=== PATIENT | female | born 1960 | race Caucasian/White ===

== ENCOUNTER 2018-05-05 13:00 | Outpatient (RCR) | payer MEDICARE, BC, MEDICAID, SELFPAY ==
--- NOTE | 2018-01-19 07:37 | PT.OIE ---
Current Diagnoses Bilateral primary osteoarthritis of knee (01/18/18) Patellofemoral disorders, right knee (01/18/18) Provider Visit Care Team Role Provider Type Hadley Stinson DO Family Provider Physician Primary Care Provider Specialty: Physiatry Pain Management Address: [address] [place] [address], [id number] Email: Jose A Vega MD Attending Provider Physician Specialty: Orthopedics Address: [address] [place] [address], [id number] Email: [email or web address] Initial Evaluation PT-OP-A Visit Information Start: 01/18/18 16:25 Freq: Status: Active Protocol: Document 01/18/18 16:26 EA (Rec: 01/18/18 16:54 EA [id number]) Out-Patient Physical Therapy Visit Information Visit Information Visit Type Initial Evaluation Visit Start Time 14:30 Visit Stop Time 15:05 Total Visit Minutes 35 Visit Number 1 PT-OP-B Current Condition Start: 01/18/18 16:25 Freq: Status: Active Protocol: Document 01/18/18 16:26 EA (Rec: 01/18/18 16:54 EA [id number]) Current Condition History of Current Condition Onset Date year ago Current Complaints Bilateral knee pain Left > Right History of Current Condition Patient was under skilled PT last 2016 and was discharged to [facility] on September 2017. Patient returned today after three weeks x 3 session of cortisone shots. Patient referred by her primary care to improve knee dysfunction. 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 Knee injury almost two years ago intensified the condition. X-rays reveals consistent with the diagnosis. Current active Diagnosis: Chronic back pain, Depression, ADD, Vision. Prior Treatments and Tests Skilled PT (06/2017-09/2017), x 3 cortisone shots in the last three weeks Developmental History Developmental History ADD Treatment Goals Patient/Caregiver Goals Patient want to eliminate pain and so she could perform walking and stari climbing without difficulty. Prior Functional Status Baseline Function- ADL's Independent Baseline Function- Mobility Independent Current Functional Impairments (Reported) Functional Limitations- ADL's Slight difficulty in ADL with weight bearing activities. Personal Factors Other Personal Factors That May Effect Chronicity of the condition. Therapy/Recovery depression. PT-OP-C Subjective Start: 01/18/18 16:25 Freq: Status: Active Protocol: Document 01/18/18 16:26 EA (Rec: 01/18/18 16:54 EA [id number]) OP-PT Subjective Patient Comments Patient Comments Patient reports underwent three cortisone shots and had improved a bit; states still following HEP that was recommended by PT. Pt reports referred to PT for further knee improvement. Patient Reported Progress Improving Patient Questionnaires Lower Extremity Functional Scale LEFS Impairment 20 to 39% Impaired (Score 48- 62) PT-OP-G Mobility & Gait Start: 01/18/18 16:25 Freq: Status: Active Protocol: Document 01/18/18 16:22 EA (Rec: 01/18/18 17:35 EA [id number]) OP Mobility Evaluation Functional Movements Squats Single leg squat: Unable to to both leg due to pain Stair Climbing Evaluation Evaluation Level of Assist On Stairs Independent Devices Stair Climbing Assistive Devices None Technique/Endurance Stair Climbing Technique Step to Step Number of Steps Climbed 15 Query Text: Comments Stair Climbing Comments Slight deviation/hand support during descent PT-OP-J Posture/Palpation/Skin Start: 01/18/18 16:25 Freq: Status: Active Protocol: Document 01/18/18 16:22 EA (Rec: 01/18/18 17:35 EA [id number]) Posture Evaluation Position Standing Evaluation View Anterior Knee Posture (L) Neutral (R) Neutral Palpation Assessment Location Two Palpation Location Patella, bilateral Palpation Details Grinding with pain during patellar compression One Palpation Location Medial superior pole and medial pole of bilateral patella Palpation Findings Tenderness Skin Assessment Circumference Measurement 1 Location Joint line: R 15 - Left 16.5 PT-OP-K Range of Motion Start: 01/18/18 16:25 Freq: Status: Active Protocol: Document 01/18/18 16:22 EA (Rec: 01/18/18 17:35 EA [id number]) Knee Goniometric Range of Motion Knee Measured in Degrees Right Knee ROM WFL Yes Left Knee ROM WFL Yes PT-OP-L Special Tests Start: 01/18/18 16:25 Freq: Status: Active Protocol: Document 01/18/18 16:22 EA (Rec: 01/18/18 17:35 EA [id number]) Special Tests Hip Special Tests Charlie Test Results slight positive Knee Special Tests Patellar Grind Test Test Results positive Hughston Pica Test Test Results negative Kenna Test Test Results negative Moisés's Sign Test Results bilateral positive PT-OP-M Strength Start: 01/18/18 16:25 Freq: Status: Active Protocol: Document 01/18/18 16:22 EA (Rec: 01/18/18 17:35 EA [id number]) Knee Strength Knee Manual Muscle Testing Right Flexion (S2) 5 Normal Extension (L3) 5 Normal Left Flexion (S2) 5 Normal Extension (L3) 5 Normal PT-OP-Q Treatments Start: 01/18/18 16:25 Freq: Status: Active Protocol: Document 01/18/18 16:22 EA (Rec: 01/18/18 17:35 EA [id number]) Self-Care/Home Management Treatment Education Patient Education Home Exercise Program Joint Protection Pain Management Safety PT-OP-T Assessment and Plan Start: 01/18/18 16:25 Freq: Status: Active Protocol: Document 01/18/18 16:22 EA (Rec: 01/18/18 17:35 EA [id number]) Physical Therapy Assessment Rehab Potential Rehabilitation Potential Good Impairments Impairments Activity Tolerance Edema Pain Soft Tissue Mobility Goals Four Impairment LEFS score of 62 Group Home Goal (LTG) Patient will have LEFS score of 68 LTG Duration 4 wks Three Impairment Inability to perform 1/4 single leg squat Group Home Goal (LTG) Patient will perform single leg squat range 1/4 without discomfort to use for functional stairs LTG Duration 4 wks Two Impairment Left knee Swelling Group Home Goal (LTG) Patient will exhibit decrease swelling on left knee by 4 cm LTG Duration 4 wks One Impairment PS of 5/10 with weight bearing activities. Group Home Goal (LTG) Patient will report 2/10 PS in all weight bearing activities LTG Duration 4 Assessment Summary Assessment Patient exhibited signs and symptoms consistent with PFPS with positive to special tests x 2. Patient demonstrates mild limitation to most weight bearing activities but it has been improving since the last PT visit three months ago. Patient also underwent three session of cortisone shots which helps her symptoms to decrease more. In my professional opinion, patient will benefit with skilled PT to address the remaining deficits such as swelling, tightness and prevention of symptoms recurrence through advance quads strengthening exercises. Physical Therapy Plan Frequency and Duration Frequency of Treatment 1x/Week Plan of Care Start Date 01/18/18 Plan of Care End Date 03/01/18 Therapeutic Interventions Therapeutic Interventions Home Exercise Program Joint Mobilizations Manual Therapy Patient/Caregiver Education Self-Care/Home Management Soft Tissue Mobilization Taping Therapeutic Exercises Modalities Cold Pack/Ice Massage Electric Stimulation Hot Packs Iontophoresis Ultrasound Next Visit Focus/Plan Next Note Type Treatment Note Next Visit Plan HEP. VMO exercises, IB band, hamtrings, quads flexibility Please Sign and Return: I have reviewed this Plan of Care and certify that the skilled therapy services above are required to meet the patient?s needs. Physician Signature Date Printed Name and Credentials Clinical Instructor Signature Printed Name and Credentials
--- NOTE | 2018-01-20 15:13 | PT.OTN ---
Current Diagnoses Bilateral primary osteoarthritis of knee (01/20/18) Patellofemoral disorders, right knee (01/20/18) Physical Therapy Treatment Note PT-OP-A Visit Information Start: 01/18/18 16:25 Freq: Status: Active Protocol: Document 01/20/18 15:04 EA (Rec: 01/20/18 15:13 EA [id number]) Out-Patient Physical Therapy Visit Information Visit Information Visit Type Treatment Note Visit Start Time 14:30 Visit Stop Time 15:15 Total Visit Minutes 45 Visit Number 2 PT-OP-B Current Condition Start: 01/18/18 16:25 Freq: Status: Active Protocol: Document 01/18/18 16:26 EA (Rec: 01/18/18 16:54 EA [id number]) Current Condition History of Current Condition Onset Date year ago Current Complaints Bilateral knee pain Left > Right History of Current Condition Patient was under skilled PT last 2016 and was discharged to [facility] on September 2017. Patient returned today after three weeks x 3 session of cortisone shots. Patient referred by her primary care to improve knee dysfunction. 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 Knee injury almost two years ago intensified the condtion. X-rays reveals consistent with the diagnosis. Current active Diagnosis: Chronic back pain, Depression, ADD, Vision. Prior Treatments and Tests Skilled PT (06/2017-09/2017), x 3 cortisone shots in the last three weeks Developmental History Developmental History ADD Treatment Goals Patient/Caregiver Goals Patient want to eliminate pain and so she could perform walking and stari climbing without difficulty. Prior Functional Status Baseline Function- ADL's Independent Baseline Function- Mobility Independent Current Functional Impairments (Reported) Functional Limitations- ADL's Slight difficulty in ADL with weight bearing activities. Personal Factors Other Personal Factors That May Effect Chronicity of the condition. Therapy/Recovery depression. PT-OP-C Subjective Start: 01/18/18 16:25 Freq: Status: Active Protocol: Document 01/20/18 15:04 EA (Rec: 01/20/18 15:13 EA [id number]) OP-PT Subjective Patient Comments Patient Comments No new complaint at this time Patient Reported Progress Same PT-OP-G Mobility & Gait Start: 01/18/18 16:25 Freq: Status: Active Protocol: Document 01/18/18 16:22 EA (Rec: 01/18/18 17:35 EA [id number]) OP Mobility Evaluation Functional Movements Squats Single leg squat: Unable to to both leg due to pain Stair Climbing Evaluation Evaluation Level of Assist On Stairs Independent Devices Stair Climbing Assistive Devices None Technique/Endurance Stair Climbing Technique Step to Step Number of Steps Climbed 15 Query Text: Comments Stair Climbing Comments Slight deviation/hand support during descent PT-OP-J Posture/Palpation/Skin Start: 01/18/18 16:25 Freq: Status: Active Protocol: Document 01/18/18 16:22 EA (Rec: 01/18/18 17:35 EA [id number]) Posture Evaluation Position Standing Evaluation View Anterior Knee Posture (L) Neutral (R) Neutral Palpation Assessment Location Two Palpation Location Patella, bilateral Palpation Details Grinding with pain during patellar compression One Palpation Location Medial superior pole and medial pole of bilateral patella Palpation Findings Tenderness Skin Assessment Circumference Measurement 1 Location Joint line: R 15 - Left 16.5 PT-OP-K Range of Motion Start: 01/18/18 16:25 Freq: Status: Active Protocol: Document 01/18/18 16:22 EA (Rec: 01/18/18 17:35 EA [id number]) Knee Goniometric Range of Motion Knee Measured in Degrees Right Knee ROM WFL Yes Left Knee ROM WFL Yes PT-OP-L Special Tests Start: 01/18/18 16:25 Freq: Status: Active Protocol: Document 01/18/18 16:22 EA (Rec: 01/18/18 17:35 EA [id number]) Special Tests Hip Special Tests Charlie Test Results slight positive Knee Special Tests Patellar Grind Test Test Results positive Hughston Pica Test Test Results neagtive Kenna Test Test Results negative Moisés's Sign Test Results bilateral positive PT-OP-M Strength Start: 01/18/18 16:25 Freq: Status: Active Protocol: Document 01/18/18 16:22 EA (Rec: 01/18/18 17:35 EA [id number]) Knee Strength Knee Manual Muscle Testing Right Flexion (S2) 5 Normal Extension (L3) 5 Normal Left Flexion (S2) 5 Normal Extension (L3) 5 Normal PT-OP-Q Treatments Start: 01/18/18 16:25 Freq: Status: Active Protocol: Document 01/20/18 15:04 EA (Rec: 01/20/18 15:13 EA [id number]) Cardio Equipment Recumbent Stepper (Sci-Fit) Duration (Minutes) 7 Resistance 2 Gym Equipment Cable Column (Body Solid) Leg Extension Details VMO focus Reps/Time x 5SH x 5 reps x 2 sets Shuttle Recovery Unilateral Squats Details 1/2 range Resistance 35-50# Shuttle Recovery Platform Stable Reps/Time x 12 reps x 2 Therapeutic Exercises Prone Exercises 1 Prone Exercise Name Quads stretch Side bilateral Reps/Minutes x 15 SH x 2 sets Sidelying Exercises 1 Sidelying Exercise Name IT band and hip ABD stretch Side left Reps/Minutes x15SH x 2 reps Standing Exercises 1 Standing Exercise Name Wall T-ball squat Side bilateral Reps/Minutes 10 reps x 5 SH x 2 sets Comments 1/2 range PT-OP-R Modalities Start: 01/18/18 16:25 Freq: Status: Active Protocol: Document 01/20/18 15:04 EA (Rec: 01/20/18 15:13 EA [id number]) Electric Stimulation Electric Stimulation Interferential Current (IFC) Body Location Left distal quads Duration (Minutes) 15 Combined With Heat/Cold Cold Pack Comments Both knee Ice pack PT-OP-T Assessment and Plan Start: 01/18/18 16:25 Freq: Status: Active Protocol: Document 01/20/18 15:04 EA (Rec: 01/20/18 15:13 EA [id number]) Physical Therapy Assessment Assessment Summary Assessment Tolerated treatment well. Recommended HEP that was given last September 2017. Physical Therapy Plan Next Visit Focus/Plan Next Note Type Treatment Note Next Visit Plan Partial lunges/ left patellar mobilization toward medial side. Please Sign and Return: I have reviewed this Plan of Care and certify that the skilled therapy services above are required to meet the patient?s needs. Physician Signature Date Printed Name and Credentials Clinical Instructor Signature Printed Name and Credentials
--- NOTE | 2018-01-25 15:09 | PT.OTN ---
Current Diagnoses Bilateral primary osteoarthritis of knee (01/25/18) Patellofemoral disorders, right knee (01/25/18) Physical Therapy Treatment Note PT-OP-A Visit Information Start: 01/18/18 16:25 Freq: Status: Active Protocol: Document 01/25/18 15:03 EA (Rec: 01/25/18 15:04 EA [id number]) Out-Patient Physical Therapy Visit Information Visit Information Visit Type Treatment Note Visit Start Time 14:30 Visit Stop Time 15:15 Total Visit Minutes 45 Visit Number 3 PT-OP-B Current Condition Start: 01/18/18 16:25 Freq: Status: Active Protocol: Document 01/18/18 16:26 EA (Rec: 01/18/18 16:54 EA [id number]) Current Condition History of Current Condition Onset Date year ago Current Complaints Bilateral knee pain Left > Right History of Current Condition Patient was under skilled PT last 2016 and was discharged to [facility] on September 2017. Patient returned today after three weeks x 3 session of cortisone shots. Patient referred by her primary care to improve knee dysfunction. 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 Knee injury almost two years ago intensified the condtion. X-rays reveals consistent with the diagnosis. Current active Diagnosis: Chronic back pain, Depression, ADD, Vision. Prior Treatments and Tests Skilled PT (06/2017-09/2017), x 3 cortisone shots in the last three weeks Developmental History Developmental History ADD Treatment Goals Patient/Caregiver Goals Patient want to eliminate pain and so she could perform walking and stari climbing without difficulty. Prior Functional Status Baseline Function- ADL's Independent Baseline Function- Mobility Independent Current Functional Impairments (Reported) Functional Limitations- ADL's Slight difficulty in ADL with weight bearing activities. Personal Factors Other Personal Factors That May Effect Chronicity of the condition. Therapy/Recovery depression. PT-OP-C Subjective Start: 01/18/18 16:25 Freq: Status: Active Protocol: Document 01/25/18 15:03 EA (Rec: 01/25/18 15:04 EA [id number]) OP-PT Subjective Patient Comments Patient Comments Patient reports knee is much feeling better. PT-OP-G Mobility & Gait Start: 01/18/18 16:25 Freq: Status: Active Protocol: Document 01/18/18 16:22 EA (Rec: 01/18/18 17:35 EA [id number]) OP Mobility Evaluation Functional Movements Squats Single leg squat: Unable to to both leg due to pain Stair Climbing Evaluation Evaluation Level of Assist On Stairs Independent Devices Stair Climbing Assistive Devices None Technique/Endurance Stair Climbing Technique Step to Step Number of Steps Climbed 15 Comments Stair Climbing Comments Slight deviation/hand support during descent PT-OP-J Posture/Palpation/Skin Start: 01/18/18 16:25 Freq: Status: Active Protocol: Document 01/18/18 16:22 EA (Rec: 01/18/18 17:35 EA [id number]) Posture Evaluation Position Standing Evaluation View Anterior Knee Posture (L) Neutral (R) Neutral Palpation Assessment Location Two Palpation Location Patella, bilateral Palpation Details Grinding with pain during patellar compression One Palpation Location Medial superior pole and medial pole of bilateral patella Palpation Findings Tenderness Skin Assessment Circumference Measurement 1 Location Joint line: R 15 - Left 16.5 PT-OP-K Range of Motion Start: 01/18/18 16:25 Freq: Status: Active Protocol: Document 01/18/18 16:22 EA (Rec: 01/18/18 17:35 EA [id number]) Knee Goniometric Range of Motion Knee Measured in Degrees Right Knee ROM WFL Yes Left Knee ROM WFL Yes PT-OP-L Special Tests Start: 01/18/18 16:25 Freq: Status: Active Protocol: Document 01/18/18 16:22 EA (Rec: 01/18/18 17:35 EA [id number]) Special Tests Hip Special Tests Charlie Test Results slight positive Knee Special Tests Patellar Grind Test Test Results positive Hughston Pica Test Test Results neagtive Kenna Test Test Results negative Moisés's Sign Test Results bilateral positive PT-OP-M Strength Start: 01/18/18 16:25 Freq: Status: Active Protocol: Document 01/18/18 16:22 EA (Rec: 01/18/18 17:35 EA [id number]) Knee Strength Knee Manual Muscle Testing Right Flexion (S2) 5 Normal Extension (L3) 5 Normal Left Flexion (S2) 5 Normal Extension (L3) 5 Normal PT-OP-Q Treatments Start: 01/18/18 16:25 Freq: Status: Active Protocol: Document 01/25/18 15:05 EA (Rec: 01/25/18 15:08 EA [id number]) Cardio Equipment Recumbent Bicycle Duration (Minutes) 5 Resistance 4 Gym Equipment Cable Column (Body Solid) Leg Extension Details VMO focus Resistance 2-4 plates Reps/Time x 5SH x 5 reps x 3 sets Shuttle Recovery Bilateral Squats Details VMO Resistance 100-125 lbs Reps/Time x 15 reps x 3 Unilateral Squats Details 1/2 range Resistance 35-50# Shuttle Recovery Platform Stable Reps/Time x 12 reps x 2 Therapeutic Exercises Prone Exercises 1 Prone Exercise Name Quads stretch Side bilateral Reps/Minutes x 15 SH x 2 sets Sidelying Exercises 1 Sidelying Exercise Name IT band and hip ABD stretch Side left Reps/Minutes x15SH x 2 reps Standing Exercises 2 Standing Exercise Name Partial lunges with hand support Reps/Minutes x 8 reps x 2 sets 1 Standing Exercise Name Wall T-ball squat Side bilateral Reps/Minutes 10 reps x 5 SH x 2 sets Comments 1/2 range PT-OP-R Modalities Start: 01/18/18 16:25 Freq: Status: Active Protocol: Document 01/25/18 15:05 EA (Rec: 01/25/18 15:08 EA [id number]) Electric Stimulation Electric Stimulation Interferential Current (IFC) Body Location Left distal quads Duration (Minutes) 15 Combined With Heat/Cold Cold Pack Comments Both knee Ice pack PT-OP-T Assessment and Plan Start: 01/18/18 16:25 Freq: Status: Active Protocol: Document 01/25/18 15:05 EA (Rec: 01/25/18 15:08 EA [id number]) Physical Therapy Assessment Assessment Summary Assessment No discomfort noted during therapeutic exercises. Patient is progressing well. Physical Therapy Plan Next Visit Focus/Plan Next Note Type Treatment Note Next Visit Plan left patellar mobilization toward medial side. Please Sign and Return: I have reviewed this Plan of Care and certify that the skilled therapy services above are required to meet the patient?s needs. Physician Signature Date Printed Name and Credentials Clinical Instructor Signature Printed Name and Credentials
--- NOTE | 2018-01-27 15:55 | PT.OTN ---
Current Diagnoses Bilateral primary osteoarthritis of knee (01/27/18) Patellofemoral disorders, right knee (01/27/18) Physical Therapy Treatment Note PT-OP-A Visit Information Start: 01/18/18 16:25 Freq: Status: Active Protocol: Document 01/27/18 15:11 EA (Rec: 01/27/18 15:16 EA [id number]) Out-Patient Physical Therapy Visit Information Visit Information Visit Type Treatment Note Visit Start Time 14:30 Visit Stop Time 15:15 Total Visit Minutes 38 Visit Number 4 PT-OP-B Current Condition Start: 01/18/18 16:25 Freq: Status: Active Protocol: Document 01/18/18 16:26 EA (Rec: 01/18/18 16:54 EA [id number]) Current Condition History of Current Condition Onset Date year ago Current Complaints Bilateral knee pain Left > Right History of Current Condition Patient was under skilled PT last 2016 and was discharged to [facility] on September 2017. Patient returned today after three weeks x 3 session of cortisone shots. Patient referred by her primary care to improve knee dysfunction. 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 Knee injury almost two years ago intensified the condtion. X-rays reveals consistent with the diagnosis. Current active Diagnosis: Chronic back pain, Depression, ADD, Vision. Prior Treatments and Tests Skilled PT (06/2017-09/2017), x 3 cortisone shots in the last three weeks Developmental History Developmental History ADD Treatment Goals Patient/Caregiver Goals Patient want to eliminate pain and so she could perform walking and stari climbing without difficulty. Prior Functional Status Baseline Function- ADL's Independent Baseline Function- Mobility Independent Current Functional Impairments (Reported) Functional Limitations- ADL's Slight difficulty in ADL with weight bearing activities. Personal Factors Other Personal Factors That May Effect Chronicity of the condition. Therapy/Recovery depression. PT-OP-C Subjective Start: 01/18/18 16:25 Freq: Status: Active Protocol: Document 01/27/18 15:11 EA (Rec: 01/27/18 15:16 EA [id number]) OP-PT Subjective Patient Comments Patient Comments No new complaints; states she has been wlaking more and with no increase of symptoms PT-OP-G Mobility & Gait Start: 01/18/18 16:25 Freq: Status: Active Protocol: Document 01/18/18 16:22 EA (Rec: 01/18/18 17:35 EA [id number]) OP Mobility Evaluation Functional Movements Squats Single leg squat: Unable to to both leg due to pain Stair Climbing Evaluation Evaluation Level of Assist On Stairs Independent Devices Stair Climbing Assistive Devices None Technique/Endurance Stair Climbing Technique Step to Step Number of Steps Climbed 15 Comments Stair Climbing Comments Slight deviation/hand support during descent PT-OP-J Posture/Palpation/Skin Start: 01/18/18 16:25 Freq: Status: Active Protocol: Document 01/18/18 16:22 EA (Rec: 01/18/18 17:35 EA [id number]) Posture Evaluation Position Standing Evaluation View Anterior Knee Posture (L) Neutral (R) Neutral Palpation Assessment Location Two Palpation Location Patella, bilateral Palpation Details Grinding with pain during patellar compression One Palpation Location Medial superior pole and medial pole of bilateral patella Palpation Findings Tenderness Skin Assessment Circumference Measurement 1 Location Joint line: R 15 - Left 16.5 PT-OP-K Range of Motion Start: 01/18/18 16:25 Freq: Status: Active Protocol: Document 01/18/18 16:22 EA (Rec: 01/18/18 17:35 EA [id number]) Knee Goniometric Range of Motion Knee Measured in Degrees Right Knee ROM WFL Yes Left Knee ROM WFL Yes PT-OP-L Special Tests Start: 01/18/18 16:25 Freq: Status: Active Protocol: Document 01/18/18 16:22 EA (Rec: 01/18/18 17:35 EA [id number]) Special Tests Hip Special Tests Charlie Test Results slight positive Knee Special Tests Patellar Grind Test Test Results positive Hughston Pica Test Test Results neagtive Kenna Test Test Results negative Moisés's Sign Test Results bilateral positive PT-OP-M Strength Start: 01/18/18 16:25 Freq: Status: Active Protocol: Document 01/18/18 16:22 EA (Rec: 01/18/18 17:35 EA [id number]) Knee Strength Knee Manual Muscle Testing Right Flexion (S2) 5 Normal Extension (L3) 5 Normal Left Flexion (S2) 5 Normal Extension (L3) 5 Normal PT-OP-Q Treatments Start: 01/18/18 16:25 Freq: Status: Active Protocol: Document 01/27/18 15:11 EA (Rec: 01/27/18 15:16 EA [id number]) Gym Equipment Cable Column (Body Solid) Leg Extension Details VMO focus Resistance 2-4 plates Reps/Time x 5SH x 5 reps x 3 sets Shuttle Recovery Bilateral Squats Details VMO Resistance 100-125 lbs Reps/Time x 15 reps x 3 Unilateral Squats Details 1/2 range Resistance 35-50# Shuttle Recovery Platform Stable Reps/Time x 12 reps x 2 Therapeutic Exercises Prone Exercises 1 Prone Exercise Name Quads stretch Side bilateral Reps/Minutes x 15 SH x 2 sets Sidelying Exercises 1 Sidelying Exercise Name IT band and hip ABD stretch Side left Reps/Minutes x15SH x 2 reps Standing Exercises 1 Standing Exercise Name Wall T-ball squat Side bilateral Reps/Minutes 10 reps x 5 SH x 2 sets Comments 1/2 range Manual Therapy Treatment Joint Mobilizations 1 Joint PF joint Direction medial glide Grade II Body Position Supine PT-OP-R Modalities Start: 01/18/18 16:25 Freq: Status: Active Protocol: Document 01/27/18 15:16 EA (Rec: 01/27/18 15:16 EA [id number]) Electric Stimulation Electric Stimulation Interferential Current (IFC) Body Location Left distal quads Duration (Minutes) 15 Combined With Heat/Cold Cold Pack Comments Both knee Ice pack PT-OP-T Assessment and Plan Start: 01/18/18 16:25 Freq: Status: Active Protocol: Document 01/27/18 15:11 EA (Rec: 01/27/18 15:16 EA [id number]) Physical Therapy Assessment Assessment Summary Assessment No noted any signs of discomfort during exercises; patient is progressing and therefore recommended to see once every week. Physical Therapy Plan Next Visit Focus/Plan Next Note Type Treatment Note Next Visit Plan Cont with current progress as tolerated Please Sign and Return: I have reviewed this Plan of Care and certify that the skilled therapy services above are required to meet the patient?s needs. Physician Signature Date Printed Name and Credentials Clinical Instructor Signature Printed Name and Credentials
--- NOTE | 2018-02-01 17:37 | PT.OTN ---
Current Diagnoses Bilateral primary osteoarthritis of knee (02/01/18) Patellofemoral disorders, right knee (02/01/18) Physical Therapy Treatment Note PT-OP-A Visit Information Start: 01/18/18 16:25 Freq: Status: Active Protocol: Document 02/01/18 14:30 GGD (Rec: 02/01/18 17:37 GGD [id number]) Out-Patient Physical Therapy Visit Information Visit Information Visit Type Treatment Note Visit Start Time 14:30 Visit Stop Time 15:15 Total Visit Minutes 45 Visit Number 5 Number of [employer] TECHNICIAN Visits 1 PT-OP-B Current Condition Start: 01/18/18 16:25 Freq: Status: Active Protocol: Document 01/18/18 16:26 EA (Rec: 01/18/18 16:54 EA [id number]) Current Condition History of Current Condition Onset Date year ago Current Complaints Bilateral knee pain Left > Right History of Current Condition Patient was under skilled PT last 2016 and was discharged to [facility] on September 2017. Patient returned today after three weeks x 3 session of cortisone shots. Patient referred by her primary care to improve knee dysfunction. 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 Knee injury almost two years ago intensified the condtion. X-rays reveals consistent with the diagnosis. Current active Diagnosis: Chronic back pain, Depression, ADD, Vision. Prior Treatments and Tests Skilled PT (06/2017-09/2017), x 3 cortisone shots in the last three weeks Developmental History Developmental History ADD Treatment Goals Patient/Caregiver Goals Patient want to eliminate pain and so she could perform walking and stari climbing without difficulty. Prior Functional Status Baseline Function- ADL's Independent Baseline Function- Mobility Independent Current Functional Impairments (Reported) Functional Limitations- ADL's Slight difficulty in ADL with weight bearing activities. Personal Factors Other Personal Factors That May Effect Chronicity of the condition. Therapy/Recovery depression. PT-OP-C Subjective Start: 01/18/18 16:25 Freq: Status: Active Protocol: Document 02/01/18 14:30 GGD (Rec: 02/01/18 17:37 GGD [id number]) OP-PT Subjective Patient Comments Patient Comments Pt states she had pain with stairs. PT-OP-G Mobility & Gait Start: 01/18/18 16:25 Freq: Status: Active Protocol: Document 01/18/18 16:22 EA (Rec: 01/18/18 17:35 EA [id number]) OP Mobility Evaluation Functional Movements Squats Single leg squat: Unable to to both leg due to pain Stair Climbing Evaluation Evaluation Level of Assist On Stairs Independent Devices Stair Climbing Assistive Devices None Technique/Endurance Stair Climbing Technique Step to Step Number of Steps Climbed 15 Comments Stair Climbing Comments Slight deviation/hand support during descent PT-OP-J Posture/Palpation/Skin Start: 01/18/18 16:25 Freq: Status: Active Protocol: Document 01/18/18 16:22 EA (Rec: 01/18/18 17:35 EA [id number]) Posture Evaluation Position Standing Evaluation View Anterior Knee Posture (L) Neutral (R) Neutral Palpation Assessment Location Two Palpation Location Patella, bilateral Palpation Details Grinding with pain during patellar compression One Palpation Location Medial superior pole and medial pole of bilateral patella Palpation Findings Tenderness Skin Assessment Circumference Measurement 1 Location Joint line: R 15 - Left 16.5 PT-OP-K Range of Motion Start: 01/18/18 16:25 Freq: Status: Active Protocol: Document 01/18/18 16:22 EA (Rec: 01/18/18 17:35 EA [id number]) Knee Goniometric Range of Motion Knee Measured in Degrees Right Knee ROM WFL Yes Left Knee ROM WFL Yes PT-OP-L Special Tests Start: 01/18/18 16:25 Freq: Status: Active Protocol: Document 01/18/18 16:22 EA (Rec: 01/18/18 17:35 EA [id number]) Special Tests Hip Special Tests Charlie Test Results slight positive Knee Special Tests Patellar Grind Test Test Results positive Hugh[place] Pica Test Test Results neagtive Kenna Test Test Results negative Moisés's Sign Test Results bilateral positive PT-OP-M Strength Start: 01/18/18 16:25 Freq: Status: Active Protocol: Document 01/18/18 16:22 EA (Rec: 01/18/18 17:35 EA [id number]) Knee Strength Knee Manual Muscle Testing Right Flexion (S2) 5 Normal Extension (L3) 5 Normal Left Flexion (S2) 5 Normal Extension (L3) 5 Normal PT-OP-Q Treatments Start: 01/18/18 16:25 Freq: Status: Active Protocol: Document 02/01/18 14:30 GGD (Rec: 02/01/18 17:37 GGD [email or web address]) Gym Equipment Cable Column (Body Solid) Leg Extension Details VMO focus Resistance 2-4 plates Reps/Time x 5SH x 5 reps x 3 sets Shuttle Recovery Bilateral Squats Details VMO Resistance 100-125 lbs Reps/Time x 15 reps x 3 Unilateral Squats Details 1/2 range Resistance 35-50# Shuttle Recovery Platform Stable Reps/Time x 12 reps x 2 Therapeutic Exercises Prone Exercises 1 Prone Exercise Name Quads stretch Side bilateral Reps/Minutes x 15 SH x 2 sets Sidelying Exercises 1 Sidelying Exercise Name IT band and hip ABD stretch Side left Reps/Minutes x15SH x 2 reps Standing Exercises 1 Standing Exercise Name Wall T-ball squat Side bilateral Reps/Minutes 10 reps x 5 SH x 2 sets Comments 1/2 range Manual Therapy Treatment Joint Mobilizations 1 Joint PF joint Direction medial glide Grade II Body Position Supine PT-OP-R Modalities Start: 01/18/18 16:25 Freq: Status: Active Protocol: Document 02/01/18 14:30 GGD (Rec: 02/01/18 17:37 GGD [email or web address]) Electric Stimulation Electric Stimulation Interferential Current (IFC) Body Location Left distal quads Duration (Minutes) 15 Combined With Heat/Cold Cold Pack Comments Both knee Ice pack PT-OP-T Assessment and Plan Start: 01/18/18 16:25 Freq: Status: Active Protocol: Document 02/01/18 14:30 GGD (Rec: 02/01/18 17:37 GGD [email or web address]) Physical Therapy Assessment Assessment Summary Assessment Pt improving with exercise, she needs cues. Physical Therapy Plan Frequency and Duration Frequency of Treatment 1x/Week Plan of Care Start Date 01/18/18 Plan of Care End Date 03/01/18 Next Visit Focus/Plan Next Note Type Treatment Note Next Visit Plan Cont with current progress as tolerated
--- NOTE | 2018-02-03 15:13 | PT.OTN ---
Current Diagnoses Bilateral primary osteoarthritis of knee (02/03/18) Patellofemoral disorders, right knee (02/03/18) Physical Therapy Treatment Note PT-OP-A Visit Information Start: 01/18/18 16:25 Freq: Status: Active Protocol: Document 02/03/18 14:37 [facility] (Rec: 02/03/18 15:13 [facility] [id number]) Out-Patient Physical Therapy Visit Information Visit Information Visit Type Treatment Note Visit Start Time 14:30 Visit Stop Time 15:20 Total Visit Minutes 50 Visit Number 6 Number of FOOT AND ANKLE SURGEON Visits 0 PT-OP-B Current Condition Start: 01/18/18 16:25 Freq: Status: Active Protocol: Document 01/18/18 16:26 EA (Rec: 01/18/18 16:54 EA [id number]) Current Condition History of Current Condition Onset Date year ago Current Complaints Bilateral knee pain Left > Right History of Current Condition Patient was under skilled PT last 2016 and was discharged to [facility] on September 2017. Patient returned today after three weeks x 3 session of cortisone shots. Patient referred by her primary care to improve knee dysfunction. 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 Knee injury almost two years ago intensified the condtion. X-rays reveals consistent with the diagnosis. Current active Diagnosis: Chronic back pain, Depression, ADD, Vision. Prior Treatments and Tests Skilled PT (06/2017-09/2017), x 3 cortisone shots in the last three weeks Developmental History Developmental History ADD Treatment Goals Patient/Caregiver Goals Patient want to eliminate pain and so she could perform walking and stari climbing without difficulty. Prior Functional Status Baseline Function- ADL's Independent Baseline Function- Mobility Independent Current Functional Impairments (Reported) Functional Limitations- ADL's Slight difficulty in ADL with weight bearing activities. Personal Factors Other Personal Factors That May Effect Chronicity of the condition. Therapy/Recovery depression. PT-OP-C Subjective Start: 01/18/18 16:25 Freq: Status: Active Protocol: Document 02/03/18 14:37 [facility] (Rec: 02/03/18 15:13 [facility] [id number]) OP-PT Subjective Patient Comments Patient Comments Reports compliance with HEP but not daily PT-OP-G Mobility & Gait Start: 01/18/18 16:25 Freq: Status: Active Protocol: Document 01/18/18 16:22 EA (Rec: 01/18/18 17:35 EA [id number]) OP Mobility Evaluation Functional Movements Squats Single leg squat: Unable to to both leg due to pain Stair Climbing Evaluation Evaluation Level of Assist On Stairs Independent Devices Stair Climbing Assistive Devices None Technique/Endurance Stair Climbing Technique Step to Step Number of Steps Climbed 15 Comments Stair Climbing Comments Slight deviation/hand support during descent PT-OP-J Posture/Palpation/Skin Start: 01/18/18 16:25 Freq: Status: Active Protocol: Document 01/18/18 16:22 EA (Rec: 01/18/18 17:35 EA [id number]) Posture Evaluation Position Standing Evaluation View Anterior Knee Posture (L) Neutral (R) Neutral Palpation Assessment Location Two Palpation Location Patella, bilateral Palpation Details Grinding with pain during patellar compression One Palpation Location Medial superior pole and medial pole of bilateral patella Palpation Findings Tenderness Skin Assessment Circumference Measurement 1 Location Joint line: R 15 - Left 16.5 PT-OP-K Range of Motion Start: 01/18/18 16:25 Freq: Status: Active Protocol: Document 01/18/18 16:22 EA (Rec: 01/18/18 17:35 EA [id number]) Knee Goniometric Range of Motion Knee Measured in Degrees Right Knee ROM WFL Yes Left Knee ROM WFL Yes PT-OP-L Special Tests Start: 01/18/18 16:25 Freq: Status: Active Protocol: Document 01/18/18 16:22 EA (Rec: 01/18/18 17:35 EA [id number]) Special Tests Hip Special Tests Charlie Test Results slight positive Knee Special Tests Patellar Grind Test Test Results positive Hugh[place] Pica Test Test Results neagtive Kenna Test Test Results negative Moisés's Sign Test Results bilateral positive PT-OP-M Strength Start: 01/18/18 16:25 Freq: Status: Active Protocol: Document 01/18/18 16:22 EA (Rec: 01/18/18 17:35 EA [id number]) Knee Strength Knee Manual Muscle Testing Right Flexion (S2) 5 Normal Extension (L3) 5 Normal Left Flexion (S2) 5 Normal Extension (L3) 5 Normal PT-OP-Q Treatments Start: 01/18/18 16:25 Freq: Status: Active Protocol: Document 02/03/18 14:37 [facility] (Rec: 02/03/18 15:13 [facility] [id number]) Gym Equipment Cable Column (Body Solid) Leg Extension Details VMO focus Resistance 3-4 plates Reps/Time x 5SH x 5 reps x 3 sets Shuttle Recovery Bilateral Squats Details VMO w/ ball Resistance 100-125 lbs Reps/Time x 15 reps x 3 Unilateral Squats Details 1/2 range Resistance 35-50# Shuttle Recovery Platform Stable Reps/Time x 12 reps x 2 Therapeutic Exercises Standing Exercises 1 Standing Exercise Name Wall T-ball squat Side bilateral Reps/Minutes 10 reps x 2 sets Comments 1/2 range Manual Therapy Treatment Soft Tissue Mobilization 1 Body Location HS med Mobilization Type Rolling Intensity/Depth Moderate Joint Mobilizations 1 Joint PF joint Direction medial, inf, sup glide Grade II Body Position Supine Taping 1 Body Location L knee Treatment Focus VMO activation & patellar tracking Type of Tape Kinesio Tape Comments 3 Y strips PT-OP-R Modalities Start: 01/18/18 16:25 Freq: Status: Active Protocol: Document 02/03/18 14:37 [facility] (Rec: 02/03/18 15:13 [facility] [id number]) Electric Stimulation Electric Stimulation Interferential Current (IFC) Body Location Left distal quads Duration (Minutes) 15 Combined With Heat/Cold Cold Pack Comments Both knee Ice pack PT-OP-T Assessment and Plan Start: 01/18/18 16:25 Freq: Status: Active Protocol: Document 02/03/18 14:37 [facility] (Rec: 02/03/18 15:13 [facility] [id number]) Physical Therapy Assessment Assessment Summary Assessment Pt cont to require cueing with exercises. Pt does have excessive tibial ER and may benefit from taping into IR of tibia. Physical Therapy Plan Frequency and Duration Frequency of Treatment 1x/Week Plan of Care Start Date 01/18/18 Plan of Care End Date 03/01/18 Next Visit Focus/Plan Next Note Type Treatment Note Next Visit Plan Cont to work on glute and VMO strength
--- NOTE | 2018-02-10 15:32 | PT.OTN ---
Current Diagnoses Bilateral primary osteoarthritis of knee (02/10/18) Patellofemoral disorders, right knee (02/10/18) Physical Therapy Treatment Note PT-OP-A Visit Information Start: 01/18/18 16:25 Freq: Status: Active Protocol: Document 02/10/18 14:30 AMB (Rec: 02/10/18 14:56 AMB [id number]) Out-Patient Physical Therapy Visit Information Visit Information Visit Type Treatment Note Visit Start Time 14:30 Visit Stop Time 15:20 Total Visit Minutes 50 Visit Number 7 Number of PERFORMANCE CONSULTANT Visits 0 PT-OP-B Current Condition Start: 01/18/18 16:25 Freq: Status: Active Protocol: Document 01/18/18 16:26 EA (Rec: 01/18/18 16:54 EA [id number]) Current Condition History of Current Condition Onset Date year ago Current Complaints Bilateral knee pain Left > Right History of Current Condition Patient was under skilled PT last 2016 and was discharged to [facility] on September 2017. Patient returned today after three weeks x 3 session of cortisone shots. Patient referred by her primary care to improve knee dysfunction. 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 Knee injury almost two years ago intensified the condtion. X-rays reveals consistent with the diagnosis. Current active Diagnosis: Chronic back pain, Depression, ADD, Vision. Prior Treatments and Tests Skilled PT (06/2017-09/2017), x 3 cortisone shots in the last three weeks Developmental History Developmental History ADD Treatment Goals Patient/Caregiver Goals Patient want to eliminate pain and so she could perform walking and stari climbing without difficulty. Prior Functional Status Baseline Function- ADL's Independent Baseline Function- Mobility Independent Current Functional Impairments (Reported) Functional Limitations- ADL's Slight difficulty in ADL with weight bearing activities. Personal Factors Other Personal Factors That May Effect Chronicity of the condition. Therapy/Recovery depression. PT-OP-C Subjective Start: 01/18/18 16:25 Freq: Status: Active Protocol: Document 02/10/18 14:30 AMB (Rec: 02/10/18 14:56 AMB [id number]) OP-PT Subjective Patient Comments Patient Comments Pt felt tape was helpful. PT-OP-G Mobility & Gait Start: 01/18/18 16:25 Freq: Status: Active Protocol: Document 01/18/18 16:22 EA (Rec: 01/18/18 17:35 EA [id number]) OP Mobility Evaluation Functional Movements Squats Single leg squat: Unable to to both leg due to pain Stair Climbing Evaluation Evaluation Level of Assist On Stairs Independent Devices Stair Climbing Assistive Devices None Technique/Endurance Stair Climbing Technique Step to Step Number of Steps Climbed 15 Comments Stair Climbing Comments Slight deviation/hand support during descent PT-OP-J Posture/Palpation/Skin Start: 01/18/18 16:25 Freq: Status: Active Protocol: Document 01/18/18 16:22 EA (Rec: 01/18/18 17:35 EA [id number]) Posture Evaluation Position Standing Evaluation View Anterior Knee Posture (L) Neutral (R) Neutral Palpation Assessment Location Two Palpation Location Patella, bilateral Palpation Details Grinding with pain during patellar compression One Palpation Location Medial superior pole and medial pole of bilateral patella Palpation Findings Tenderness Skin Assessment Circumference Measurement 1 Location Joint line: R 15 - Left 16.5 PT-OP-K Range of Motion Start: 01/18/18 16:25 Freq: Status: Active Protocol: Document 01/18/18 16:22 EA (Rec: 01/18/18 17:35 EA [id number]) Knee Goniometric Range of Motion Knee Measured in Degrees Right Knee ROM WFL Yes Left Knee ROM WFL Yes PT-OP-L Special Tests Start: 01/18/18 16:25 Freq: Status: Active Protocol: Document 01/18/18 16:22 EA (Rec: 01/18/18 17:35 EA [id number]) Special Tests Hip Special Tests Charlie Test Results slight positive Knee Special Tests Patellar Grind Test Test Results positive Hugh[place] Pica Test Test Results neagtive Kenna Test Test Results negative Moisés's Sign Test Results bilateral positive PT-OP-M Strength Start: 01/18/18 16:25 Freq: Status: Active Protocol: Document 01/18/18 16:22 EA (Rec: 01/18/18 17:35 EA [id number]) Knee Strength Knee Manual Muscle Testing Right Flexion (S2) 5 Normal Extension (L3) 5 Normal Left Flexion (S2) 5 Normal Extension (L3) 5 Normal PT-OP-Q Treatments Start: 01/18/18 16:25 Freq: Status: Active Protocol: Document 02/10/18 14:30 AMB (Rec: 02/10/18 15:31 AMB [email or web address]) Gym Equipment Cable Column (Body Solid) Leg Extension Details VMO focus Resistance 3-4 plates Reps/Time x 5SH x 5 reps x 3 sets Shuttle Recovery Bilateral Squats Details VMO w/ ball Resistance 100 Reps/Time x 15 reps x 3 Unilateral Squats Details 1/2 range Resistance 35-50# Shuttle Recovery Platform Stable Reps/Time x 12 reps x 2 Therapeutic Exercises Prone Exercises 1 Prone Exercise Name Quads stretch Side bilateral Reps/Minutes x 15 SH x 2 sets Sidelying Exercises 1 Sidelying Exercise Name IT band and hip ABD stretch Side left Reps/Minutes x15SH x 2 reps Manual Therapy Treatment Joint Mobilizations 1 Joint PF joint Direction medial, inf, sup glide Grade II Body Position Supine Taping 1 Body Location L knee Treatment Focus VMO activation & patellar tracking Type of Tape Kinesio Tape Comments 3 Y strips PT-OP-R Modalities Start: 01/18/18 16:25 Freq: Status: Active Protocol: Document 02/10/18 14:30 AMB (Rec: 02/10/18 15:31 AMB [email or web address]) Electric Stimulation Electric Stimulation Interferential Current (IFC) Body Location Left distal quads Duration (Minutes) 10 Combined With Heat/Cold Cold Pack Comments Both knee Ice pack PT-OP-T Assessment and Plan Start: 01/18/18 16:25 Freq: Status: Active Protocol: Document 02/10/18 14:30 AMB (Rec: 02/10/18 15:31 AMB [email or web address]) Physical Therapy Assessment Assessment Summary Assessment Pt concerned about popping in her knees, but reassured her that non-painful popping is ok . Physical Therapy Plan Frequency and Duration Frequency of Treatment 1x/Week Plan of Care Start Date 01/18/18 Plan of Care End Date 03/01/18 Next Visit Focus/Plan Next Note Type Treatment Note Next Visit Plan Continue to progress VMO/ hip stability
--- NOTE | 2018-02-24 15:37 | PT.OTN ---
Current Diagnoses Bilateral primary osteoarthritis of knee (02/24/18) Patellofemoral disorders, right knee (02/24/18) Physical Therapy Treatment Note PT-OP-A Visit Information Start: 01/18/18 16:25 Freq: Status: Active Protocol: Document 02/24/18 14:43 [facility] (Rec: 02/24/18 15:37 [facility] [id number]) Out-Patient Physical Therapy Visit Information Visit Information Visit Type Treatment Note Visit Start Time 14:35 Visit Stop Time 15:20 Total Visit Minutes 45 Visit Number 8 Number of HEEL CEMENTER Visits 0 PT-OP-B Current Condition Start: 01/18/18 16:25 Freq: Status: Active Protocol: Document 01/18/18 16:26 EA (Rec: 01/18/18 16:54 EA [id number]) Current Condition History of Current Condition Onset Date year ago Current Complaints Bilateral knee pain Left > Right History of Current Condition Patient was under skilled PT last 2016 and was discharged to [facility] on September 2017. Patient returned today after three weeks x 3 session of cortisone shots. Patient referred by her primary care to improve knee dysfunction. 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 Knee injury almost two years ago intensified the condtion. X-rays reveals consistent with the diagnosis. Current active Diagnosis: Chronic back pain, Depression, ADD, Vision. Prior Treatments and Tests Skilled PT (06/2017-09/2017), x 3 cortisone shots in the last three weeks Developmental History Developmental History ADD Treatment Goals Patient/Caregiver Goals Patient want to eliminate pain and so she could perform walking and stari climbing without difficulty. Prior Functional Status Baseline Function- ADL's Independent Baseline Function- Mobility Independent Current Functional Impairments (Reported) Functional Limitations- ADL's Slight difficulty in ADL with weight bearing activities. Personal Factors Other Personal Factors That May Effect Chronicity of the condition. Therapy/Recovery depression. PT-OP-C Subjective Start: 01/18/18 16:25 Freq: Status: Active Protocol: Document 02/24/18 14:43 [facility] (Rec: 02/24/18 15:37 [facility] [id number]) OP-PT Subjective Patient Comments Patient Comments Reports rarely doing HEP. PT-OP-G Mobility & Gait Start: 01/18/18 16:25 Freq: Status: Active Protocol: Document 01/18/18 16:22 EA (Rec: 01/18/18 17:35 EA [id number]) OP Mobility Evaluation Functional Movements Squats Single leg squat: Unable to to both leg due to pain Stair Climbing Evaluation Evaluation Level of Assist On Stairs Independent Devices Stair Climbing Assistive Devices None Technique/Endurance Stair Climbing Technique Step to Step Number of Steps Climbed 15 Comments Stair Climbing Comments Slight deviation/hand support during descent PT-OP-J Posture/Palpation/Skin Start: 01/18/18 16:25 Freq: Status: Active Protocol: Document 01/18/18 16:22 EA (Rec: 01/18/18 17:35 EA [id number]) Posture Evaluation Position Standing Evaluation View Anterior Knee Posture (L) Neutral (R) Neutral Palpation Assessment Location Two Palpation Location Patella, bilateral Palpation Details Grinding with pain during patellar compression One Palpation Location Medial superior pole and medial pole of bilateral patella Palpation Findings Tenderness Skin Assessment Circumference Measurement 1 Location Joint line: R 15 - Left 16.5 PT-OP-K Range of Motion Start: 01/18/18 16:25 Freq: Status: Active Protocol: Document 01/18/18 16:22 EA (Rec: 01/18/18 17:35 EA [id number]) Knee Goniometric Range of Motion Knee Measured in Degrees Right Knee ROM WFL Yes Left Knee ROM WFL Yes PT-OP-L Special Tests Start: 01/18/18 16:25 Freq: Status: Active Protocol: Document 01/18/18 16:22 EA (Rec: 01/18/18 17:35 EA [id number]) Special Tests Hip Special Tests Charlie Test Results slight positive Knee Special Tests Patellar Grind Test Test Results positive [place] Pica Test Test Results neagtive Kenna Test Test Results negative Moisés's Sign Test Results bilateral positive PT-OP-M Strength Start: 01/18/18 16:25 Freq: Status: Active Protocol: Document 01/18/18 16:22 EA (Rec: 01/18/18 17:35 EA [id number]) Knee Strength Knee Manual Muscle Testing Right Flexion (S2) 5 Normal Extension (L3) 5 Normal Left Flexion (S2) 5 Normal Extension (L3) 5 Normal PT-OP-Q Treatments Start: 01/18/18 16:25 Freq: Status: Active Protocol: Document 02/24/18 14:43 [facility] (Rec: 02/24/18 15:37 [facility] [id number]) Cardio Equipment Recumbent Stepper (Sci-Fit) Duration (Minutes) 10 Resistance 2 Seat Position 13 Gym Equipment Shuttle Recovery Bilateral Squats Details VMO w/ ball Resistance 100 Reps/Time x 15 reps x 3 Unilateral Squats Details 1/2 range Resistance 37-50# Shuttle Recovery Platform Stable Reps/Time x 12 reps x 2 Therapeutic Exercises Supine Exercises 2 Supine Exercise Name HS/ITB stretch Reps/Minutes 30 sec holds 1 Supine Exercise Name SLR Side bilateral Reps/Minutes 20 Sidelying Exercises 2 Sidelying Exercise Name abd Reps/Minutes 20 Standing Exercises 2 Standing Exercise Name TKE Resistance L2 Reps/Minutes 30 1 Standing Exercise Name Wall squat Side bilateral Reps/Minutes 10 reps x 2 sets Comments 1/2 range Manual Therapy Treatment Soft Tissue Mobilization 1 Body Location HS med Mobilization Type Rolling Intensity/Depth Moderate Joint Mobilizations 1 Joint PF joint Direction medial, inf, sup glide Grade II Body Position Supine Taping 1 Body Location L knee Treatment Focus VMO activation & patellar tracking Type of Tape Kinesio Tape Comments 3 Y strips PT-OP-R Modalities Start: 01/18/18 16:25 Freq: Status: Active Protocol: Document 02/10/18 14:30 AMB (Rec: 02/10/18 15:31 AMB [email or web address]) Electric Stimulation Electric Stimulation Interferential Current (IFC) Body Location Left distal quads Duration (Minutes) 10 Combined With Heat/Cold Cold Pack Comments Both knee Ice pack PT-OP-T Assessment and Plan Start: 01/18/18 16:25 Freq: Status: Active Protocol: Document 02/24/18 14:43 [facility] (Rec: 02/24/18 15:37 [facility] [id number]) Physical Therapy Assessment Assessment Summary Assessment Pt cont to require cueing to maintain in painfree range & to maintain neutral positioning of knees & pelvis. Physical Therapy Plan Frequency and Duration Frequency of Treatment 1x/Week Plan of Care Start Date 01/18/18 Plan of Care End Date 03/01/18 Next Visit Focus/Plan Next Note Type Treatment Note Next Visit Plan Continue to progress VMO/ hip stability
--- NOTE | 2018-03-01 15:33 | PT.OTN ---
Current Diagnoses Bilateral primary osteoarthritis of knee (03/01/18) Patellofemoral disorders, right knee (03/01/18) Physical Therapy Treatment Note PT-OP-A Visit Information Start: 01/18/18 16:25 Freq: Status: Active Protocol: Document 03/01/18 15:24 [facility] (Rec: 03/01/18 15:33 [facility] [id number]) Out-Patient Physical Therapy Visit Information Visit Information Visit Type Treatment Note Visit Start Time 02:30 Visit Stop Time 03:15 Total Visit Minutes 45 Visit Number 9 Number of CONSUMER SERVICES CONSULTANT Visits 0 PT-OP-B Current Condition Start: 01/18/18 16:25 Freq: Status: Active Protocol: Document 01/18/18 16:26 EA (Rec: 01/18/18 16:54 EA [id number]) Current Condition History of Current Condition Onset Date year ago Current Complaints Bilateral knee pain Left > Right History of Current Condition Patient was under skilled PT last 2016 and was discharged to [facility] on September 2017. Patient returned today after three weeks x 3 session of cortisone shots. Patient referred by her primary care to improve knee dysfunction. 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 Knee injury almost two years ago intensified the condtion. X-rays reveals consistent with the diagnosis. Current active Diagnosis: Chronic back pain, Depression, ADD, Vision. Prior Treatments and Tests Skilled PT (06/2017-09/2017), x 3 cortisone shots in the last three weeks Developmental History Developmental History ADD Treatment Goals Patient/Caregiver Goals Patient want to eliminate pain and so she could perform walking and stari climbing without difficulty. Prior Functional Status Baseline Function- ADL's Independent Baseline Function- Mobility Independent Current Functional Impairments (Reported) Functional Limitations- ADL's Slight difficulty in ADL with weight bearing activities. Personal Factors Other Personal Factors That May Effect Chronicity of the condition. Therapy/Recovery depression. PT-OP-C Subjective Start: 01/18/18 16:25 Freq: Status: Active Protocol: Document 03/01/18 15:24 [facility] (Rec: 03/01/18 15:33 [facility] [id number]) OP-PT Subjective Patient Comments Patient Comments Imelda reports she is trying to walk more PT-OP-G Mobility & Gait Start: 01/18/18 16:25 Freq: Status: Active Protocol: Document 01/18/18 16:22 EA (Rec: 01/18/18 17:35 EA [id number]) OP Mobility Evaluation Functional Movements Squats Single leg squat: Unable to to both leg due to pain Stair Climbing Evaluation Evaluation Level of Assist On Stairs Independent Devices Stair Climbing Assistive Devices None Technique/Endurance Stair Climbing Technique Step to Step Number of Steps Climbed 15 Comments Stair Climbing Comments Slight deviation/hand support during descent PT-OP-J Posture/Palpation/Skin Start: 01/18/18 16:25 Freq: Status: Active Protocol: Document 01/18/18 16:22 EA (Rec: 01/18/18 17:35 EA [id number]) Posture Evaluation Position Standing Evaluation View Anterior Knee Posture (L) Neutral (R) Neutral Palpation Assessment Location Two Palpation Location Patella, bilateral Palpation Details Grinding with pain during patellar compression One Palpation Location Medial superior pole and medial pole of bilateral patella Palpation Findings Tenderness Skin Assessment Circumference Measurement 1 Location Joint line: R 15 - Left 16.5 PT-OP-K Range of Motion Start: 01/18/18 16:25 Freq: Status: Active Protocol: Document 01/18/18 16:22 EA (Rec: 01/18/18 17:35 EA [id number]) Knee Goniometric Range of Motion Knee Measured in Degrees Right Knee ROM WFL Yes Left Knee ROM WFL Yes PT-OP-L Special Tests Start: 01/18/18 16:25 Freq: Status: Active Protocol: Document 01/18/18 16:22 EA (Rec: 01/18/18 17:35 EA [id number]) Special Tests Hip Special Tests Charlie Test Results slight positive Knee Special Tests Patellar Grind Test Test Results positive [place] Pica Test Test Results neagtive Kenna Test Test Results negative Moisés's Sign Test Results bilateral positive PT-OP-M Strength Start: 01/18/18 16:25 Freq: Status: Active Protocol: Document 01/18/18 16:22 EA (Rec: 01/18/18 17:35 EA [id number]) Knee Strength Knee Manual Muscle Testing Right Flexion (S2) 5 Normal Extension (L3) 5 Normal Left Flexion (S2) 5 Normal Extension (L3) 5 Normal PT-OP-Q Treatments Start: 01/18/18 16:25 Freq: Status: Active Protocol: Document 03/01/18 15:24 [facility] (Rec: 03/01/18 15:33 [facility] [email or web address]) Cardio Equipment Bicycle (Upright) Duration (Minutes) 5 Seat Position 4 Gym Equipment Shuttle Recovery Bilateral Squats Details VMO w/ ball Resistance 100 Reps/Time x 15 reps x 3 Unilateral Squats Details 1/2 range Resistance 37-50# Shuttle Recovery Platform Stable Reps/Time x 12 reps x 2 Therapeutic Ball 1 Exercise Details ball rolls Ball Size/Color 65 cm Body Position Supine Reps/Duration 2 x 10 reps Comments ball rolls with heels pressing in for HS Therapeutic Exercises Supine Exercises 2 Supine Exercise Name HS/ITB stretch Reps/Minutes 30 sec holds 1 Supine Exercise Name SLR Side bilateral Reps/Minutes 20 Sidelying Exercises 2 Sidelying Exercise Name abd Reps/Minutes 20 1 Sidelying Exercise Name IT band and hip ABD stretch Side left Reps/Minutes x15SH x 2 reps Standing Exercises 3 Standing Exercise Name standing hip abduction Reps/Minutes 2 x 10 reps 1 Standing Exercise Name Wall squat Side bilateral Reps/Minutes 10 reps x 2 sets Comments 1/2 range Manual Therapy Treatment Soft Tissue Mobilization 2 Body Location patella tendon MFR Body Position Supine PT-OP-R Modalities Start: 01/18/18 16:25 Freq: Status: Active Protocol: Document 02/10/18 14:30 AMB (Rec: 02/10/18 15:31 AMB [email or web address]) Electric Stimulation Electric Stimulation Interferential Current (IFC) Body Location Left distal quads Duration (Minutes) 10 Combined With Heat/Cold Cold Pack Comments Both knee Ice pack PT-OP-T Assessment and Plan Start: 01/18/18 16:25 Freq: Status: Active Protocol: Document 03/01/18 15:24 [facility] (Rec: 03/01/18 15:33 [facility] [email or web address]) Physical Therapy Assessment Assessment Summary Assessment needs verbal cueing for knee position, tends to let the left hip IR with SLR Physical Therapy Plan Frequency and Duration Frequency of Treatment 1x/Week Plan of Care Start Date 01/18/18 Plan of Care End Date 03/01/18 Therapeutic Interventions Therapeutic Interventions Home Exercise Program Manual Therapy Self-Care/Home Management Soft Tissue Mobilization Taping Therapeutic Exercises Next Visit Focus/Plan Next Note Type Progress Note Next Visit Plan continue to progress knee stability
--- NOTE | 2018-03-10 16:41 | PT.OTN ---
Current Diagnoses Bilateral primary osteoarthritis of knee (03/10/18) Patellofemoral disorders, right knee (03/10/18) Physical Therapy Treatment Note PT-OP-A Visit Information Start: 01/18/18 16:25 Freq: Status: Active Protocol: Document 03/10/18 14:30 SAK (Rec: 03/10/18 15:13 SAK [id number]) Out-Patient Physical Therapy Visit Information Visit Information Visit Type Re-Evaluation Visit Start Time 13:45 Visit Stop Time 14:30 Total Visit Minutes 45 Visit Number 10 Number of CLAIMS ATTORNEY Visits 0 PT-OP-B Current Condition Start: 01/18/18 16:25 Freq: Status: Active Protocol: Document 01/18/18 16:26 EA (Rec: 01/18/18 16:54 EA [id number]) Current Condition History of Current Condition Onset Date year ago Current Complaints Bilateral knee pain Left > Right History of Current Condition Patient was under skilled PT last 2016 and was discharged to [facility] on September 2017. Patient returned today after three weeks x 3 session of cortisone shots. Patient referred by her primary care to improve knee dysfunction. 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 Knee injury almost two years ago intensified the condtion. X-rays reveals consistent with the diagnosis. Current active Diagnosis: Chronic back pain, Depression, ADD, Vision. Prior Treatments and Tests Skilled PT (06/2017-09/2017), x 3 cortisone shots in the last three weeks Developmental History Developmental History ADD Treatment Goals Patient/Caregiver Goals Patient want to eliminate pain and so she could perform walking and stari climbing without difficulty. Prior Functional Status Baseline Function- ADL's Independent Baseline Function- Mobility Independent Current Functional Impairments (Reported) Functional Limitations- ADL's Slight difficulty in ADL with weight bearing activities. Personal Factors Other Personal Factors That May Effect Chronicity of the condition. Therapy/Recovery depression. PT-OP-C Subjective Start: 01/18/18 16:25 Freq: Status: Active Protocol: Document 03/10/18 14:30 SAK (Rec: 03/10/18 15:13 SAK [id number]) OP-PT Subjective Patient Comments Patient Comments left knee more sore than the right. Doing HEP about every other day, trying to walk more . Feeling stronger. Patient Reported Progress Improving PT-OP-G Mobility & Gait Start: 01/18/18 16:25 Freq: Status: Active Protocol: Document 01/18/18 16:22 EA (Rec: 01/18/18 17:35 EA [id number]) OP Mobility Evaluation Functional Movements Squats Single leg squat: Unable to to both leg due to pain Stair Climbing Evaluation Evaluation Level of Assist On Stairs Independent Devices Stair Climbing Assistive Devices None Technique/Endurance Stair Climbing Technique Step to Step Number of Steps Climbed 15 Comments Stair Climbing Comments Slight deviation/hand support during descent PT-OP-J Posture/Palpation/Skin Start: 01/18/18 16:25 Freq: Status: Active Protocol: Document 01/18/18 16:22 EA (Rec: 01/18/18 17:35 EA [id number]) Posture Evaluation Position Standing Evaluation View Anterior Knee Posture (L) Neutral (R) Neutral Palpation Assessment Location Two Palpation Location Patella, bilateral Palpation Details Grinding with pain during patellar compression One Palpation Location Medial superior pole and medial pole of bilateral patella Palpation Findings Tenderness Skin Assessment Circumference Measurement 1 Location Joint line: R 15 - Left 16.5 PT-OP-K Range of Motion Start: 01/18/18 16:25 Freq: Status: Active Protocol: Document 01/18/18 16:22 EA (Rec: 01/18/18 17:35 EA [id number]) Knee Goniometric Range of Motion Knee Measured in Degrees Right Knee ROM WFL Yes Left Knee ROM WFL Yes PT-OP-L Special Tests Start: 01/18/18 16:25 Freq: Status: Active Protocol: Document 01/18/18 16:22 EA (Rec: 01/18/18 17:35 EA [id number]) Special Tests Hip Special Tests Charlie Test Results slight positive Knee Special Tests Patellar Grind Test Test Results positive Hughston Pica Test Test Results neagtive Kenna Test Test Results negative Moisés's Sign Test Results bilateral positive PT-OP-M Strength Start: 01/18/18 16:25 Freq: Status: Active Protocol: Document 01/18/18 16:22 EA (Rec: 01/18/18 17:35 EA [id number]) Knee Strength Knee Manual Muscle Testing Right Flexion (S2) 5 Normal Extension (L3) 5 Normal Left Flexion (S2) 5 Normal Extension (L3) 5 Normal PT-OP-Q Treatments Start: 01/18/18 16:25 Freq: Status: Active Protocol: Document 03/10/18 14:30 SAK (Rec: 03/10/18 15:13 SAK [id number]) Cardio Equipment Recumbent Stepper (Sci-Fit) Duration (Minutes) 10 Resistance 2 Seat Position 13 Gym Equipment Shuttle Recovery Bilateral Squats Details VMO w/ ball Resistance 100 Reps/Time x 15 reps x 3 Unilateral Squats Details 1/2 range Resistance 37-50# Shuttle Recovery Platform Stable Reps/Time x 12 reps x 2 Therapeutic Ball 1 Exercise Details ball rolls Ball Size/Color 65 cm Body Position Supine Reps/Duration 2 x 10 reps Comments ball rolls with heels pressing in for HS Therapeutic Exercises Supine Exercises 2 Supine Exercise Name HS/ITB stretch Reps/Minutes 30 sec holds 1 Supine Exercise Name SLR Side bilateral Reps/Minutes 20 Sidelying Exercises 2 Sidelying Exercise Name abd Reps/Minutes 20 1 Sidelying Exercise Name IT band and hip ABD stretch Side left Reps/Minutes x15SH x 2 reps Standing Exercises 1 Standing Exercise Name Wall squat Side bilateral Reps/Minutes 10 reps x 2 sets Comments 1/2 range Manual Therapy Treatment Soft Tissue Mobilization 1 Body Location HS med Mobilization Type Rolling Intensity/Depth Moderate PT-OP-R Modalities Start: 01/18/18 16:25 Freq: Status: Active Protocol: Document 02/10/18 14:30 AMB (Rec: 02/10/18 15:31 AMB [id number]) Electric Stimulation Electric Stimulation Interferential Current (IFC) Body Location Left distal quads Duration (Minutes) 10 Combined With Heat/Cold Cold Pack Comments Both knee Ice pack PT-OP-T Assessment and Plan Start: 01/18/18 16:25 Freq: Status: Active Protocol: Document 03/10/18 14:30 SAK (Rec: 03/10/18 15:13 SAK [id number]) Physical Therapy Assessment Goals Four Impairment LEFS score of 62 Chcf Goal (LTG) Patient will have LEFS score of 68 (goal progress) LTG Duration 8 wks Three Impairment Inability to perform 1/4 single leg squat Chcf Goal (LTG) Patient will perform single leg squat range 1/4 without discomfort to use for functional stairs (goal progress LTG Duration 8 wks Two Impairment Left knee Swelling Multimedia Authoring Specialist Goal (LTG) Patient will exhibit decrease swelling on left knee by 4 cm (goal progress) LTG Duration 8 wks One Impairment PS of 5/10 with weight bearing activities. Multimedia Authoring Specialist Goal (LTG) Patient will report 2/10 PS in all weight bearing activities (goal progress) LTG Duration 8 wks Progress Towards Goals Progress Towards Goals Progressing Toward Goals Progress Comments Would benefit from further PT to decrease patient's pain, improve her strength and stability for improved function. Assessment Summary Assessment Patient requires verbal and manual cues for correct exercise performance Physical Therapy Plan Frequency and Duration Frequency of Treatment 1x/Week Duration of Treatment 2 months Plan of Care Start Date 03/10/18 Plan of Care End Date 05/09/18 Therapeutic Interventions Therapeutic Interventions Home Exercise Program Manual Therapy Self-Care/Home Management Soft Tissue Mobilization Taping Therapeutic Exercises Modalities Cold Pack/Ice Massage Electric Stimulation Hot Packs Next Visit Focus/Plan Next Note Type Treatment Note Next Visit Plan Continue PT for strengthening and stabilization of hip and knee, pain management techniques as indicated.
--- NOTE | 2018-03-10 16:41 | PT.OPPOC ---
Current Diagnoses Bilateral primary osteoarthritis of knee (03/10/18) Patellofemoral disorders, right knee (03/10/18) Provider Visit Care Team Role Provider Type Hadley Stinson DO Family Provider Physician Primary Care Provider Specialty: Physiatry Pain Management Address: [address] [place] [address], [id number] Email: Jose A Vega MD Attending Provider Physician Specialty: Orthopedics Address: [address] [place] [address], [id number] Email: [email or web address] Plan Of Care PT-OP-T Assessment and Plan Start: 01/18/18 16:25 Freq: Status: Active Protocol: Document 03/10/18 14:30 SAK (Rec: 03/10/18 15:13 SAK [id number]) Physical Therapy Assessment Goals Four Impairment LEFS score of 62 Drafter Topographical Goal (LTG) Patient will have LEFS score of 68 (goal progress) LTG Duration 8 wks Three Impairment Inability to perform 1/4 single leg squat Detention Goal (LTG) Patient will perform single leg squat range 1/4 without discomfort to use for functional stairs (goal progress LTG Duration 8 wks Two Impairment Left knee Swelling Detention Goal (LTG) Patient will exhibit decrease swelling on left knee by 4 cm (goal progress) LTG Duration 8 wks One Impairment PS of 5/10 with weight bearing activities. Drafter Topographical Goal (LTG) Patient will report 2/10 PS in all weight bearing activities (goal progress) LTG Duration 8 wks Progress Towards Goals Progress Towards Goals Progressing Toward Goals Progress Comments Would benefit from further PT to decrease patient's pain, improve her strength and stability for improved function. Assessment Summary Assessment Patient requires verbal and manual cues for correct exercise performance Physical Therapy Plan Frequency and Duration Frequency of Treatment 1x/Week Duration of Treatment 2 months Plan of Care Start Date 03/10/18 Plan of Care End Date 05/09/18 Therapeutic Interventions Therapeutic Interventions Home Exercise Program Manual Therapy Self-Care/Home Management Soft Tissue Mobilization Taping Therapeutic Exercises Modalities Cold Pack/Ice Massage Electric Stimulation Hot Packs Next Visit Focus/Plan Next Note Type Treatment Note Next Visit Plan Continue PT for strengthening and stabilization of hip and knee, pain management techniques as indicated. Plan of Care Dates Plan of Care Start Date 03/10/18 Plan of Care End Date 05/09/18 Please Sign and Return: I have reviewed this Plan of Care and certify that the skilled therapy services above are required to meet the patient?s needs. Physician Signature Date Printed Name and Credentials Clinical Instructor Signature Printed Name and Credentials
--- NOTE | 2018-03-17 16:49 | PT.OTN ---
Current Diagnoses Bilateral primary osteoarthritis of knee (03/17/18) Patellofemoral disorders, right knee (03/17/18) Physical Therapy Treatment Note PT-OP-A Visit Information Start: 01/18/18 16:25 Freq: Status: Active Protocol: Document 03/17/18 14:30 SAK (Rec: 03/17/18 16:49 SAK [id number]) Out-Patient Physical Therapy Visit Information Visit Information Visit Type Treatment Note Visit Start Time 14:30 Visit Stop Time 15:30 Total Visit Minutes 60 Visit Number 11 Number of ROBOT PROGRAMMER Visits 0 PT-OP-B Current Condition Start: 01/18/18 16:25 Freq: Status: Active Protocol: Document 01/18/18 16:26 EA (Rec: 01/18/18 16:54 EA [id number]) Current Condition History of Current Condition Onset Date year ago Current Complaints Bilateral knee pain Left > Right History of Current Condition Patient was under skilled PT last 2016 and was discharged to [facility] on September 2017. Patient returned today after three weeks x 3 session of cortisone shots. Patient referred by her primary care to improve knee dysfunction. 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 Knee injury almost two years ago intensified the condtion. X-rays reveals consistent with the diagnosis. Current active Diagnosis: Chronic back pain, Depression, ADD, Vision. Prior Treatments and Tests Skilled PT (06/2017-09/2017), x 3 cortisone shots in the last three weeks Developmental History Developmental History ADD Treatment Goals Patient/Caregiver Goals Patient want to eliminate pain and so she could perform walking and stari climbing without difficulty. Prior Functional Status Baseline Function- ADL's Independent Baseline Function- Mobility Independent Current Functional Impairments (Reported) Functional Limitations- ADL's Slight difficulty in ADL with weight bearing activities. Personal Factors Other Personal Factors That May Effect Chronicity of the condition. Therapy/Recovery depression. PT-OP-C Subjective Start: 01/18/18 16:25 Freq: Status: Active Protocol: Document 03/17/18 14:30 SAK (Rec: 03/17/18 16:49 SAK [id number]) OP-PT Subjective Patient Comments Patient Comments left knee continues to be more sore. Agrees to kinesiotape again, possible heat or ice at end of session. PT-OP-G Mobility & Gait Start: 01/18/18 16:25 Freq: Status: Active Protocol: Document 01/18/18 16:22 EA (Rec: 01/18/18 17:35 EA [id number]) OP Mobility Evaluation Functional Movements Squats Single leg squat: Unable to to both leg due to pain Stair Climbing Evaluation Evaluation Level of Assist On Stairs Independent Devices Stair Climbing Assistive Devices None Technique/Endurance Stair Climbing Technique Step to Step Number of Steps Climbed 15 Comments Stair Climbing Comments Slight deviation/hand support during descent PT-OP-J Posture/Palpation/Skin Start: 01/18/18 16:25 Freq: Status: Active Protocol: Document 01/18/18 16:22 EA (Rec: 01/18/18 17:35 EA [id number]) Posture Evaluation Position Standing Evaluation View Anterior Knee Posture (L) Neutral (R) Neutral Palpation Assessment Location Two Palpation Location Patella, bilateral Palpation Details Grinding with pain during patellar compression One Palpation Location Medial superior pole and medial pole of bilateral patella Palpation Findings Tenderness Skin Assessment Circumference Measurement 1 Location Joint line: R 15 - Left 16.5 PT-OP-K Range of Motion Start: 01/18/18 16:25 Freq: Status: Active Protocol: Document 01/18/18 16:22 EA (Rec: 01/18/18 17:35 EA [id number]) Knee Goniometric Range of Motion Knee Measured in Degrees Right Knee ROM WFL Yes Left Knee ROM WFL Yes PT-OP-L Special Tests Start: 01/18/18 16:25 Freq: Status: Active Protocol: Document 01/18/18 16:22 EA (Rec: 01/18/18 17:35 EA [id number]) Special Tests Hip Special Tests Charlie Test Results slight positive Knee Special Tests Patellar Grind Test Test Results positive Hughston Pica Test Test Results neagtive Kenna Test Test Results negative Moisés's Sign Test Results bilateral positive PT-OP-M Strength Start: 01/18/18 16:25 Freq: Status: Active Protocol: Document 01/18/18 16:22 EA (Rec: 01/18/18 17:35 EA [id number]) Knee Strength Knee Manual Muscle Testing Right Flexion (S2) 5 Normal Extension (L3) 5 Normal Left Flexion (S2) 5 Normal Extension (L3) 5 Normal PT-OP-Q Treatments Start: 01/18/18 16:25 Freq: Status: Active Protocol: Document 03/17/18 14:30 SAK (Rec: 03/17/18 16:49 SAK [id number]) Cardio Equipment Recumbent Stepper (Sci-Fit) Duration (Minutes) 10 Resistance 2 Seat Position 12 Gym Equipment Shuttle Recovery Bilateral Squats Details VMO w/ ball Resistance 100 Reps/Time x 15 reps x 3 Unilateral Squats Details 1/2 range Resistance 37-50# Shuttle Recovery Platform Stable Reps/Time x 12 reps x 2 Therapeutic Ball 1 Exercise Details ball rolls Ball Size/Color 65 cm Body Position Supine Reps/Duration 2 x 10 reps Comments ball rolls with heels pressing in for HS Therapeutic Exercises Supine Exercises 2 Supine Exercise Name HS/ITB stretch Reps/Minutes 30 sec holds 1 Supine Exercise Name SLR Side bilateral Equipment Used 1# Reps/Minutes 20 Prone Exercises 2 Prone Exercise Name hip ext Equipment Used 1# Reps/Minutes 20 1 Prone Exercise Name Quads stretch Side bilateral Reps/Minutes x 15 SH x 2 sets Sidelying Exercises 2 Sidelying Exercise Name hip abd, add Equipment Used 1# Reps/Minutes 20 Manual Therapy Treatment Soft Tissue Mobilization 2 Body Location patella tendon MFR Body Position Supine Joint Mobilizations 1 Joint PF joint Direction medial, inf, sup glide Grade II Body Position Supine Taping 1 Body Location L knee Treatment Focus VMO activation & patellar tracking Type of Tape Kinesio Tape Comments 3 Y strips PT-OP-R Modalities Start: 01/18/18 16:25 Freq: Status: Active Protocol: Document 02/10/18 14:30 AMB (Rec: 02/10/18 15:31 AMB [id number]) Electric Stimulation Electric Stimulation Interferential Current (IFC) Body Location Left distal quads Duration (Minutes) 10 Combined With Heat/Cold Cold Pack Comments Both knee Ice pack PT-OP-T Assessment and Plan Start: 01/18/18 16:25 Freq: Status: Active Protocol: Document 03/17/18 14:30 SAK (Rec: 03/17/18 16:49 SAK [id number]) Physical Therapy Plan Next Visit Focus/Plan Next Note Type Treatment Note Next Visit Plan Continue PT for strengthening and stabilization of hip and knee, pain management techniques as indicated.
--- NOTE | 2018-03-24 17:25 | PT.OTN ---
Current Diagnoses Bilateral primary osteoarthritis of knee (03/24/18) Patellofemoral disorders, right knee (03/24/18) Physical Therapy Treatment Note PT-OP-A Visit Information Start: 01/18/18 16:25 Freq: Status: Active Protocol: Document 03/24/18 16:54 EA (Rec: 03/24/18 17:23 EA [id number]) Out-Patient Physical Therapy Visit Information Visit Information Visit Type Treatment Note Visit Start Time 16:45 Visit Stop Time 17:30 Total Visit Minutes 45 Visit Number 12 Number of GILL BOX OPERATOR Visits 0 PT-OP-B Current Condition Start: 01/18/18 16:25 Freq: Status: Active Protocol: Document 01/18/18 16:26 EA (Rec: 01/18/18 16:54 EA [id number]) Current Condition History of Current Condition Onset Date year ago Current Complaints Bilateral knee pain Left > Right History of Current Condition Patient was under skilled PT last 2016 and was discharged to [facility] on September 2017. Patient returned today after three weeks x 3 session of cortisone shots. Patient referred by her primary care to improve knee dysfunction. 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 Knee injury almost two years ago intensified the condtion. X-rays reveals consistent with the diagnosis. Current active Diagnosis: Chronic back pain, Depression, ADD, Vision. Prior Treatments and Tests Skilled PT (06/2017-09/2017), x 3 cortisone shots in the last three weeks Developmental History Developmental History ADD Treatment Goals Patient/Caregiver Goals Patient want to eliminate pain and so she could perform walking and stari climbing without difficulty. Prior Functional Status Baseline Function- ADL's Independent Baseline Function- Mobility Independent Current Functional Impairments (Reported) Functional Limitations- ADL's Slight difficulty in ADL with weight bearing activities. Personal Factors Other Personal Factors That May Effect Chronicity of the condition. Therapy/Recovery depression. PT-OP-C Subjective Start: 01/18/18 16:25 Freq: Status: Active Protocol: Document 03/24/18 16:54 EA (Rec: 03/24/18 17:23 EA [id number]) OP-PT Subjective Patient Comments Patient Comments Pt reports knees are getting better at this time; reports unable to do regular HEP as she is doing walking almost daily. PT-OP-G Mobility & Gait Start: 01/18/18 16:25 Freq: Status: Active Protocol: Document 01/18/18 16:22 EA (Rec: 01/18/18 17:35 EA [id number]) OP Mobility Evaluation Functional Movements Squats Single leg squat: Unable to to both leg due to pain Stair Climbing Evaluation Evaluation Level of Assist On Stairs Independent Devices Stair Climbing Assistive Devices None Technique/Endurance Stair Climbing Technique Step to Step Number of Steps Climbed 15 Comments Stair Climbing Comments Slight deviation/hand support during descent PT-OP-J Posture/Palpation/Skin Start: 01/18/18 16:25 Freq: Status: Active Protocol: Document 01/18/18 16:22 EA (Rec: 01/18/18 17:35 EA [id number]) Posture Evaluation Position Standing Evaluation View Anterior Knee Posture (L) Neutral (R) Neutral Palpation Assessment Location Two Palpation Location Patella, bilateral Palpation Details Grinding with pain during patellar compression One Palpation Location Medial superior pole and medial pole of bilateral patella Palpation Findings Tenderness Skin Assessment Circumference Measurement 1 Location Joint line: R 15 - Left 16.5 PT-OP-K Range of Motion Start: 01/18/18 16:25 Freq: Status: Active Protocol: Document 01/18/18 16:22 EA (Rec: 01/18/18 17:35 EA [id number]) Knee Goniometric Range of Motion Knee Measured in Degrees Right Knee ROM WFL Yes Left Knee ROM WFL Yes PT-OP-L Special Tests Start: 01/18/18 16:25 Freq: Status: Active Protocol: Document 01/18/18 16:22 EA (Rec: 01/18/18 17:35 EA [id number]) Special Tests Hip Special Tests Charlie Test Results slight positive Knee Special Tests Patellar Grind Test Test Results positive Hughston Pica Test Test Results neagtive Kenna Test Test Results negative Moisés's Sign Test Results bilateral positive PT-OP-M Strength Start: 01/18/18 16:25 Freq: Status: Active Protocol: Document 01/18/18 16:22 EA (Rec: 01/18/18 17:35 EA [id number]) Knee Strength Knee Manual Muscle Testing Right Flexion (S2) 5 Normal Extension (L3) 5 Normal Left Flexion (S2) 5 Normal Extension (L3) 5 Normal PT-OP-Q Treatments Start: 01/18/18 16:25 Freq: Status: Active Protocol: Document 03/24/18 16:54 EA (Rec: 03/24/18 17:23 EA [id number]) Cardio Equipment Recumbent Stepper (Sci-Fit) Duration (Minutes) 10 Resistance 2 Seat Position 12 Gym Equipment Cable Column (Body Solid) Leg Extension Details 30# Shuttle Recovery Bilateral Squats Details VMO w/ ball Resistance 125 Reps/Time x 15 reps x 3 Unilateral Squats Details 1/2 range Resistance 75 Shuttle Recovery Platform Stable Reps/Time x 12 reps x 2 Therapeutic Exercises Supine Exercises 2 Supine Exercise Name HS/ITB stretch Reps/Minutes 30 sec holds 1 Supine Exercise Name SLR Side bilateral Equipment Used 1# Reps/Minutes 20 Prone Exercises 1 Prone Exercise Name Quads stretch Side bilateral Reps/Minutes x 15 SH x 2 sets Standing Exercises 4 Standing Exercise Name // bars steady lunges Side bilateral Reps/Minutes 10 reps x 2 Comments with foam to support knee 1 Standing Exercise Name Wall squat Side bilateral Reps/Minutes 10 reps x 2 sets Comments 1/2 range PT-OP-R Modalities Start: 01/18/18 16:25 Freq: Status: Active Protocol: Document 03/24/18 17:25 EA (Rec: 03/24/18 17:25 EA [id number]) Hot Pack/Cold Pack Treatment Cold Pack Location both knees Patient Position Supine Patient Tolerance Good PT-OP-T Assessment and Plan Start: 01/18/18 16:25 Freq: Status: Active Protocol: Document 03/24/18 16:54 EA (Rec: 03/24/18 17:23 EA [id number]) Physical Therapy Assessment Assessment Summary Assessment Pt able to perform lunges with minimal support. patient improving well.
--- NOTE | 2018-03-31 11:19 | PT.OTN ---
Current Diagnoses Bilateral primary osteoarthritis of knee (03/31/18) Patellofemoral disorders, right knee (03/31/18) Physical Therapy Treatment Note PT-OP-A Visit Information Start: 01/18/18 16:25 Freq: Status: Active Protocol: Document 03/31/18 11:19 RCC (Rec: 03/31/18 11:44 RCC [email or web address]) Out-Patient Physical Therapy Visit Information Visit Information Visit Type Treatment Note Visit Start Time 10:30 Visit Stop Time 11:19 Total Visit Minutes 49 Visit Number 13 Number of SINGING TELEGRAM PERFORMER Visits 0 PT-OP-B Current Condition Start: 01/18/18 16:25 Freq: Status: Active Protocol: Document 01/18/18 16:26 EA (Rec: 01/18/18 16:54 EA [id number]) Current Condition History of Current Condition Onset Date year ago Current Complaints Bilateral knee pain Left > Right History of Current Condition Patient was under skilled PT last 2016 and was discharged to [facility] on September 2017. Patient returned today after three weeks x 3 session of cortisone shots. Patient referred by her primary care to improve knee dysfunction. 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 Knee injury almost two years ago intensified the condtion. X-rays reveals consistent with the diagnosis. Current active Diagnosis: Chronic back pain, Depression, ADD, Vision. Prior Treatments and Tests Skilled PT (06/2017-09/2017), x 3 cortisone shots in the last three weeks Developmental History Developmental History ADD Treatment Goals Patient/Caregiver Goals Patient want to eliminate pain and so she could perform walking and stari climbing without difficulty. Prior Functional Status Baseline Function- ADL's Independent Baseline Function- Mobility Independent Current Functional Impairments (Reported) Functional Limitations- ADL's Slight difficulty in ADL with weight bearing activities. Personal Factors Other Personal Factors That May Effect Chronicity of the condition. Therapy/Recovery depression. PT-OP-C Subjective Start: 01/18/18 16:25 Freq: Status: Active Protocol: Document 03/31/18 11:19 RCC (Rec: 03/31/18 11:44 RCC [id number]) OP-PT Subjective Patient Comments Patient Comments Pt notes that she has not been doing her HEP the past couple days and she is sore. PT-OP-G Mobility & Gait Start: 01/18/18 16:25 Freq: Status: Active Protocol: Document 01/18/18 16:22 EA (Rec: 01/18/18 17:35 EA [id number]) OP Mobility Evaluation Functional Movements Squats Single leg squat: Unable to to both leg due to pain Stair Climbing Evaluation Evaluation Level of Assist On Stairs Independent Devices Stair Climbing Assistive Devices None Technique/Endurance Stair Climbing Technique Step to Step Number of Steps Climbed 15 Comments Stair Climbing Comments Slight deviation/hand support during descent PT-OP-J Posture/Palpation/Skin Start: 01/18/18 16:25 Freq: Status: Active Protocol: Document 01/18/18 16:22 EA (Rec: 01/18/18 17:35 EA [id number]) Posture Evaluation Position Standing Evaluation View Anterior Knee Posture (L) Neutral (R) Neutral Palpation Assessment Location Two Palpation Location Patella, bilateral Palpation Details Grinding with pain during patellar compression One Palpation Location Medial superior pole and medial pole of bilateral patella Palpation Findings Tenderness Skin Assessment Circumference Measurement 1 Location Joint line: R 15 - Left 16.5 PT-OP-K Range of Motion Start: 01/18/18 16:25 Freq: Status: Active Protocol: Document 01/18/18 16:22 EA (Rec: 01/18/18 17:35 EA [id number]) Knee Goniometric Range of Motion Knee Measured in Degrees Right Knee ROM WFL Yes Left Knee ROM WFL Yes PT-OP-L Special Tests Start: 01/18/18 16:25 Freq: Status: Active Protocol: Document 01/18/18 16:22 EA (Rec: 01/18/18 17:35 EA [id number]) Special Tests Hip Special Tests Charlie Test Results slight positive Knee Special Tests Patellar Grind Test Test Results positive Hugh[place] Pica Test Test Results neagtive Kenna Test Test Results negative Moisés's Sign Test Results bilateral positive PT-OP-M Strength Start: 01/18/18 16:25 Freq: Status: Active Protocol: Document 01/18/18 16:22 EA (Rec: 01/18/18 17:35 EA [id number]) Knee Strength Knee Manual Muscle Testing Right Flexion (S2) 5 Normal Extension (L3) 5 Normal Left Flexion (S2) 5 Normal Extension (L3) 5 Normal PT-OP-Q Treatments Start: 01/18/18 16:25 Freq: Status: Active Protocol: Document 03/31/18 11:19 RCC (Rec: 03/31/18 11:44 RCC [email or web address]) Gym Equipment Shuttle Recovery Bilateral Squats Details VMO w/ ball Resistance 100 Reps/Time x 15 reps x 3 Unilateral Squats Details 1/2 range Resistance 50 Shuttle Recovery Platform Stable Reps/Time x 12 reps x 2 Therapeutic Exercises Supine Exercises 3 Supine Exercise Name hip flexor and rectus femoris stretch Side bilateral 2 Supine Exercise Name HS/ITB stretch Reps/Minutes 30 sec holds 1 Supine Exercise Name SLR Side bilateral Equipment Used 1# Reps/Minutes 20 Sidelying Exercises 2 Sidelying Exercise Name hip abd, add Equipment Used 1# Reps/Minutes 20 1 Sidelying Exercise Name hip ABD stretch Side left Standing Exercises 4 Standing Exercise Name // bars steady lunges Side bilateral Reps/Minutes 10 reps x 2 Comments with foam to support knee Manual Therapy Treatment Soft Tissue Mobilization 2 Body Location patella tendon MFR Body Position Supine Joint Mobilizations 1 Joint PF joint Direction medial, inf, sup glide Grade III Body Position Supine PT-OP-R Modalities Start: 01/18/18 16:25 Freq: Status: Active Protocol: Document 03/31/18 11:19 [facility] (Rec: 03/31/18 11:44 RCC [email or web address]) Hot Pack/Cold Pack Treatment Cold Pack Location both knees Patient Position Supine Treatment Duration (minutes) 10 Patient Tolerance Good PT-OP-T Assessment and Plan Start: 01/18/18 16:25 Freq: Status: Active Protocol: Document 03/31/18 11:19 [facility] (Rec: 03/31/18 11:44 [facility] [email or web address]) Physical Therapy Assessment Assessment Summary Assessment Pt required a decrease in resistance on Shuttle leg press this session due to increased pain and soreness in bilateral knees. Pt encouraged to continue to perform her HEP to continue to make progress vs. having set- backs with increased soreness with daily/normal activities. Physical Therapy Plan Frequency and Duration Frequency of Treatment 1x/Week Duration of Treatment 2 months Plan of Care Start Date 03/10/18 Plan of Care End Date 05/09/18 Next Visit Focus/Plan Next Note Type Treatment Note Next Visit Plan progress as tolerated with knee strengthening and improved PF tracking.
--- NOTE | 2018-04-07 14:31 | PT.OTN ---
Current Diagnoses Bilateral primary osteoarthritis of knee (04/07/18) Patellofemoral disorders, right knee (04/07/18) Physical Therapy Treatment Note PT-OP-A Visit Information Start: 01/18/18 16:25 Freq: Status: Active Protocol: Document 04/07/18 13:00 AMB (Rec: 04/07/18 13:08 AMB [id number]) Out-Patient Physical Therapy Visit Information Visit Information Visit Type Treatment Note Visit Start Time 13:00 Visit Stop Time 13:55 Total Visit Minutes 55 Visit Number 14 Number of ORDER ADMINISTRATOR Visits 0 PT-OP-B Current Condition Start: 01/18/18 16:25 Freq: Status: Active Protocol: Document 01/18/18 16:26 EA (Rec: 01/18/18 16:54 EA [id number]) Current Condition History of Current Condition Onset Date year ago Current Complaints Bilateral knee pain Left > Right History of Current Condition Patient was under skilled PT last 2016 [address] discharged to [facility] on September 2017. Patient returned today after three weeks x 3 session of cortisone shots. Patient referred by her primary care to improve knee dysfunction. 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 Knee injury almost two years ago intensified the condtion. X-rays reveals consistent with the diagnosis. Current active Diagnosis: Chronic back pain, Depression, ADD, Vision. Prior Treatments and Tests Skilled PT (06/2017-09/2017), x 3 cortisone shots in the last three weeks Developmental History Developmental History ADD Treatment Goals Patient/Caregiver Goals Patient want to eliminate pain and so she could perform walking and stari climbing without difficulty. Prior Functional Status Baseline Function- ADL's Independent Baseline Function- Mobility Independent Current Functional Impairments (Reported) Functional Limitations- ADL's Slight difficulty in ADL with weight bearing activities. Personal Factors Other Personal Factors That May Effect Chronicity of the condition. Therapy/Recovery depression. PT-OP-C Subjective Start: 01/18/18 16:25 Freq: Status: Active Protocol: Document 04/07/18 13:00 AMB (Rec: 04/07/18 13:08 AMB [id number]) OP-PT Subjective Patient Comments Patient Comments Pt has not been walking as much with smoke. She has a hard time starting to do her exercises. PT-OP-G Mobility & Gait Start: 01/18/18 16:25 Freq: Status: Active Protocol: Document 01/18/18 16:22 EA (Rec: 01/18/18 17:35 EA [id number]) OP Mobility Evaluation Functional Movements Squats Single leg squat: Unable to to both leg due to pain Stair Climbing Evaluation Evaluation Level of Assist On Stairs Independent Devices Stair Climbing Assistive Devices None Technique/Endurance Stair Climbing Technique Step to Step Number of Steps Climbed 15 Comments Stair Climbing Comments Slight deviation/hand support during descent PT-OP-J Posture/Palpation/Skin Start: 01/18/18 16:25 Freq: Status: Active Protocol: Document 01/18/18 16:22 EA (Rec: 01/18/18 17:35 EA [id number]) Posture Evaluation Position Standing Evaluation View Anterior Knee Posture (L) Neutral (R) Neutral Palpation Assessment Location Two Palpation Location Patella, bilateral Palpation Details Grinding with pain during patellar compression One Palpation Location Medial superior pole and medial pole of bilateral patella Palpation Findings Tenderness Skin Assessment Circumference Measurement 1 Location Joint line: R 15 - Left 16.5 PT-OP-K Range of Motion Start: 01/18/18 16:25 Freq: Status: Active Protocol: Document 01/18/18 16:22 EA (Rec: 01/18/18 17:35 EA [id number]) Knee Goniometric Range of Motion Knee Measured in Degrees Right Knee ROM WFL Yes Left Knee ROM WFL Yes PT-OP-L Special Tests Start: 01/18/18 16:25 Freq: Status: Active Protocol: Document 01/18/18 16:22 EA (Rec: 01/18/18 17:35 EA [id number]) Special Tests Hip Special Tests Charlie Test Results slight positive Knee Special Tests Patellar Grind Test Test Results positive [place] Pica Test Test Results neagtive Kenna Test Test Results negative Moisés's Sign Test Results bilateral positive PT-OP-M Strength Start: 01/18/18 16:25 Freq: Status: Active Protocol: Document 01/18/18 16:22 EA (Rec: 01/18/18 17:35 EA [id number]) Knee Strength Knee Manual Muscle Testing Right Flexion (S2) 5 Normal Extension (L3) 5 Normal Left Flexion (S2) 5 Normal Extension (L3) 5 Normal PT-OP-Q Treatments Start: 06/05/18 16:25 Freq: Status: Active Protocol: Document 04/07/18 13:00 AMB (Rec: 04/07/18 13:19 AMB [id number]) Cardio Equipment Bicycle (Upright) Duration (Minutes) 7 Resistance 5 Gym Equipment Shuttle Recovery Bilateral Squats Details VMO w/ ball Resistance 100 Reps/Time x 15 reps x 3 Unilateral Squats Details 1/2 range Resistance 50 Shuttle Recovery Platform Stable Reps/Time x 12 reps x 2 Therapeutic Exercises Supine Exercises 3 Supine Exercise Name hip flexor and rectus femoris stretch Side bilateral 2 Supine Exercise Name HS/ITB stretch Reps/Minutes 30 sec holds 1 Supine Exercise Name SLR Side bilateral Equipment Used 1# Reps/Minutes 20 Sidelying Exercises 2 Sidelying Exercise Name hip abd, add Equipment Used 1# Reps/Minutes 20 1 Sidelying Exercise Name hip ABD stretch Side left Manual Therapy Treatment Joint Mobilizations 1 Joint PF joint Direction medial, inf, sup glide Grade III Body Position Supine PT-OP-R Modalities Start: 01/18/18 16:25 Freq: Status: Active Protocol: Document 04/07/18 13:00 AMB (Rec: 04/07/18 13:33 AMB [id number]) Hot Pack/Cold Pack Treatment Cold Pack Location both knees Patient Position Supine Treatment Duration (minutes) 10 Patient Tolerance Good PT-OP-T Assessment and Plan Start: 01/18/18 16:25 Freq: Status: Active Protocol: Document 04/07/18 13:00 AMB (Rec: 04/07/18 13:11 AMB [id number]) Physical Therapy Assessment Assessment Summary Assessment Pt continues to have pain bilaterally at baseline, but this improves with exercise. Physical Therapy Plan Next Visit Focus/Plan Next Note Type Treatment Note Next Visit Plan Provide written HEP to help with pt's consistency with HEP .
--- NOTE | 2018-04-14 13:50 | PT.OTN ---
Current Diagnoses Bilateral primary osteoarthritis of knee (04/14/18) Patellofemoral disorders, right knee (04/14/18) Physical Therapy Treatment Note PT-OP-A Visit Information Start: 01/18/18 16:25 Freq: Status: Active Protocol: Document 04/14/18 13:00 AMB (Rec: 04/14/18 13:13 AMB [id number]) Out-Patient Physical Therapy Visit Information Visit Information Visit Type Treatment Note Visit Note G code 12/23 Visit Start Time 13:00 Visit Stop Time 13:55 Total Visit Minutes 55 Visit Number 15 Number of DATA ENTRY MANAGER Visits 0 PT-OP-B Current Condition Start: 01/18/18 16:25 Freq: Status: Active Protocol: Document 01/18/18 16:26 EA (Rec: 01/18/18 16:54 EA [id number]) Current Condition History of Current Condition Onset Date year ago Current Complaints Bilateral knee pain Left > Right History of Current Condition Patient was under skilled PT last 2016 and was discharged to [facility] on September 2017. Patient returned today after three weeks x 3 session of cortisone shots. Patient referred by her primary care to improve knee dysfunction. 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 Knee injury almost two years ago intensified the condtion. X-rays reveals consistent with the diagnosis. Current active Diagnosis: Chronic back pain, Depression, ADD, Vision. Prior Treatments and Tests Skilled PT (06/2017-09/2017), x 3 cortisone shots in the last three weeks Developmental History Developmental History ADD Treatment Goals Patient/Caregiver Goals Patient want to eliminate pain and so she could perform walking and stari climbing without difficulty. Prior Functional Status Baseline Function- ADL's Independent Baseline Function- Mobility Independent Current Functional Impairments (Reported) Functional Limitations- ADL's Slight difficulty in ADL with weight bearing activities. Personal Factors Other Personal Factors That May Effect Chronicity of the condition. Therapy/Recovery depression. PT-OP-C Subjective Start: 01/18/18 16:25 Freq: Status: Active Protocol: Document 04/14/18 13:00 AMB (Rec: 04/14/18 13:13 AMB [id number]) OP-PT Subjective Patient Comments Patient Comments Pt has been going on walks more now, about 25 minutes. PT-OP-G Mobility & Gait Start: 01/18/18 16:25 Freq: Status: Active Protocol: Document 01/18/18 16:22 EA (Rec: 01/18/18 17:35 EA [id number]) OP Mobility Evaluation Functional Movements Squats Single leg squat: Unable to to both leg due to pain Stair Climbing Evaluation Evaluation Level of Assist On Stairs Independent Devices Stair Climbing Assistive Devices None Technique/Endurance Stair Climbing Technique Step to Step Number of Steps Climbed 15 Comments Stair Climbing Comments Slight deviation/hand support during descent PT-OP-J Posture/Palpation/Skin Start: 01/18/18 16:25 Freq: Status: Active Protocol: Document 01/18/18 16:22 EA (Rec: 01/18/18 17:35 EA [id number]) Posture Evaluation Position Standing Evaluation View Anterior Knee Posture (L) Neutral (R) Neutral Palpation Assessment Location Two Palpation Location Patella, bilateral Palpation Details Grinding with pain during patellar compression One Palpation Location Medial superior pole and medial pole of bilateral patella Palpation Findings Tenderness Skin Assessment Circumference Measurement 1 Location Joint line: R 15 - Left 16.5 PT-OP-K Range of Motion Start: 01/18/18 16:25 Freq: Status: Active Protocol: Document 01/18/18 16:22 EA (Rec: 01/18/18 17:35 EA [id number]) Knee Goniometric Range of Motion Knee Measured in Degrees Right Knee ROM WFL Yes Left Knee ROM WFL Yes PT-OP-L Special Tests Start: 01/18/18 16:25 Freq: Status: Active Protocol: Document 01/18/18 16:22 EA (Rec: 01/18/18 17:35 EA [id number]) Special Tests Hip Special Tests Charlie Test Results slight positive Knee Special Tests Patellar Grind Test Test Results positive [place] Pica Test Test Results neagtive Kenna Test Test Results negative Moisés's Sign Test Results bilateral positive PT-OP-M Strength Start: 01/18/18 16:25 Freq: Status: Active Protocol: Document 01/18/18 16:22 EA (Rec: 01/18/18 17:35 EA [id number]) Knee Strength Knee Manual Muscle Testing Right Flexion (S2) 5 Normal Extension (L3) 5 Normal Left Flexion (S2) 5 Normal Extension (L3) 5 Normal PT-OP-Q Treatments Start: 01/18/18 16:25 Freq: Status: Active Protocol: Document 04/14/18 13:00 AMB (Rec: 04/14/18 13:07 AMB [id number]) Cardio Equipment Bicycle (Upright) Duration (Minutes) 7 Resistance 6 Gym Equipment Shuttle Recovery Bilateral Squats Details VMO w/ ball Resistance 100 Reps/Time x 15 reps x 3 Unilateral Squats Details 1/2 range Resistance 50 Shuttle Recovery Platform Stable Reps/Time x 12 reps x 2 Therapeutic Exercises Supine Exercises 3 Supine Exercise Name hip flexor and rectus femoris stretch Side bilateral 2 Supine Exercise Name HS/ITB stretch Reps/Minutes 30 sec holds 1 Supine Exercise Name SLR Side bilateral Equipment Used 2# Reps/Minutes 20 Prone Exercises 1 Prone Exercise Name Quads stretch Side bilateral Reps/Minutes x 15 SH x 2 sets Sidelying Exercises 2 Sidelying Exercise Name hip abd, add Equipment Used 1# Reps/Minutes 20 Standing Exercises 3 Standing Exercise Name 4 stair step up Reps/Minutes 15 ea leg 2 Standing Exercise Name closed chain knee ext Equipment Used #3 t band Comments 2x10 Manual Therapy Treatment Joint Mobilizations 1 Joint PF joint Direction medial, inf, sup glide Grade III Body Position Supine PT-OP-R Modalities Start: 01/18/18 16:25 Freq: Status: Active Protocol: Document 04/14/18 13:07 AMB (Rec: 04/14/18 13:08 AMB [id number]) Hot Pack/Cold Pack Treatment Cold Pack Location both knees Patient Position Supine Treatment Duration (minutes) 10 Patient Tolerance Good PT-OP-T Assessment and Plan Start: 01/18/18 16:25 Freq: Status: Active Protocol: Document 04/14/18 13:00 AMB (Rec: 04/14/18 13:27 AMB [id number]) Physical Therapy Assessment Assessment Summary Assessment Pt states she has ankle weights at home, but not sure the resistance, can use if 2# or less. Physical Therapy Plan Next Visit Focus/Plan Next Note Type Treatment Note Next Visit Plan Pt has written HEP at home, but not sure where it is, asked her to find her sheets.
--- NOTE | 2018-04-21 14:29 | PT.OTN ---
Current Diagnoses Bilateral primary osteoarthritis of knee (04/21/18) Patellofemoral disorders, right knee (04/21/18) Physical Therapy Treatment Note PT-OP-A Visit Information Start: 01/18/18 16:25 Freq: Status: Active Protocol: Document 04/21/18 13:32 LRN (Rec: 04/21/18 14:20 LRN [id number]) Out-Patient Physical Therapy Visit Information Visit Information Visit Type Treatment Note Visit Note G code 01/23. 2 visits until KX Visit Start Time 13:32 Visit Stop Time 02:25 Total Visit Minutes 53 Visit Number 16 Number of TICKET COUNTER Visits 0 PT-OP-B Current Condition Start: 01/18/18 16:25 Freq: Status: Active Protocol: Document 01/18/18 16:26 EA (Rec: 01/18/18 16:54 EA [id number]) Current Condition History of Current Condition Onset Date year ago Current Complaints Bilateral knee pain Left > Right History of Current Condition Patient was under skilled PT last 2016 and was discharged to [facility] on September 2017. Patient returned today after three weeks x 3 session of cortisone shots. Patient referred by her primary care to improve knee dysfunction. 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 Knee injury almost two years ago intensified the condtion. X-rays reveals consistent with the diagnosis. Current active Diagnosis: Chronic back pain, Depression, ADD, Vision. Prior Treatments and Tests Skilled PT (06/2017-09/2017), x 3 cortisone shots in the last three weeks Developmental History Developmental History ADD Treatment Goals Patient/Caregiver Goals Patient want to eliminate pain and so she could perform walking and stari climbing without difficulty. Prior Functional Status Baseline Function- ADL's Independent Baseline Function- Mobility Independent Current Functional Impairments (Reported) Functional Limitations- ADL's Slight difficulty in ADL with weight bearing activities. Personal Factors Other Personal Factors That May Effect Chronicity of the condition. Therapy/Recovery depression. PT-OP-C Subjective Start: 01/18/18 16:25 Freq: Status: Active Protocol: Document 04/21/18 13:32 LRN (Rec: 04/21/18 14:20 LRN [id number]) OP-PT Subjective Patient Comments Patient Comments Pain at rest is 6/10, while exercising it is less. PT-OP-G Mobility & Gait Start: 01/18/18 16:25 Freq: Status: Active Protocol: Document 01/18/18 16:22 EA (Rec: 01/18/18 17:35 EA [id number]) OP Mobility Evaluation Functional Movements Squats Single leg squat: Unable to to both leg due to pain Stair Climbing Evaluation Evaluation Level of Assist On Stairs Independent Devices Stair Climbing Assistive Devices None Technique/Endurance Stair Climbing Technique Step to Step Number of Steps Climbed 15 Comments Stair Climbing Comments Slight deviation/hand support during descent PT-OP-J Posture/Palpation/Skin Start: 01/18/18 16:25 Freq: Status: Active Protocol: Document 01/18/18 16:22 EA (Rec: 01/18/18 17:35 EA [id number]) Posture Evaluation Position Standing Evaluation View Anterior Knee Posture (L) Neutral (R) Neutral Palpation Assessment Location Two Palpation Location Patella, bilateral Palpation Details Grinding with pain during patellar compression One Palpation Location Medial superior pole and medial pole of bilateral patella Palpation Findings Tenderness Skin Assessment Circumference Measurement 1 Location Joint line: R 15 - Left 16.5 PT-OP-K Range of Motion Start: 01/18/18 16:25 Freq: Status: Active Protocol: Document 01/18/18 16:22 EA (Rec: 01/18/18 17:35 EA [id number]) Knee Goniometric Range of Motion Knee Measured in Degrees Right Knee ROM WFL Yes Left Knee ROM WFL Yes PT-OP-L Special Tests Start: 01/18/18 16:25 Freq: Status: Active Protocol: Document 01/18/18 16:22 EA (Rec: 01/18/18 17:35 EA [id number]) Special Tests Hip Special Tests Charlie Test Results slight positive Knee Special Tests Patellar Grind Test Test Results positive Hugh[place] Pica Test Test Results neagtive Kenna Test Test Results negative Moisés's Sign Test Results bilateral positive PT-OP-M Strength Start: 01/18/18 16:25 Freq: Status: Active Protocol: Document 01/18/18 16:22 EA (Rec: 01/18/18 17:35 EA [id number]) Knee Strength Knee Manual Muscle Testing Right Flexion (S2) 5 Normal Extension (L3) 5 Normal Left Flexion (S2) 5 Normal Extension (L3) 5 Normal PT-OP-Q Treatments Start: 01/18/18 16:25 Freq: Status: Active Protocol: Document 04/21/18 13:32 LRN (Rec: 04/21/18 14:20 LRN [id number]) Cardio Equipment Bicycle (Upright) Duration (Minutes) 10 Resistance 4 Seat Position 7 Gym Equipment Shuttle Recovery Bilateral Squats Details VMO w/ ball Resistance 100 Reps/Time x 15 reps x 3 Unilateral Squats Details 1/2 range Resistance 50 Shuttle Recovery Platform Stable Reps/Time x 12 reps x 1 Therapeutic Exercises Supine Exercises 3 Supine Exercise Name hip flexor and rectus femoris stretch Side bilateral 2 Supine Exercise Name HS/ITB stretch Reps/Minutes 60 sec holds Manual Therapy Treatment Taping 1 Body Location Bilateral knees Treatment Focus Medial mob of patella Type of Tape Kinesio Tape Skin Inspection Good Comments Knee pain decreased with tape PT-OP-R Modalities Start: 01/18/18 16:25 Freq: Status: Active Protocol: Document 04/21/18 13:32 LRN (Rec: 04/21/18 14:20 LRN [id number]) Hot Pack/Cold Pack Treatment Cold Pack Location both knees Patient Position Supine Treatment Duration (minutes) 10 Patient Tolerance Good PT-OP-T Assessment and Plan Start: 01/18/18 16:25 Freq: Status: Active Protocol: Document 04/21/18 13:32 LRN (Rec: 04/21/18 14:20 LRN [id number]) Physical Therapy Assessment Assessment Summary Assessment Pt having clicking at the knees, possibly from poor patellar tracking and possibly quad weakness? + response to K-tape. Physical Therapy Plan Next Visit Focus/Plan Next Note Type Treatment Note Next Visit Plan Improve PF tracking and Medial quad/general quad strength and general LE stretching.
--- NOTE | 2018-04-28 13:45 | PT.OTN ---
Current Diagnoses Bilateral primary osteoarthritis of knee (04/28/18) Patellofemoral disorders, right knee (04/28/18) Physical Therapy Treatment Note PT-OP-A Visit Information Start: 01/18/18 16:25 Freq: Status: Active Protocol: Document 04/28/18 13:43 EA (Rec: 04/28/18 13:44 EA [id number]) Out-Patient Physical Therapy Visit Information Visit Information Visit Type Treatment Note Visit Start Time 13:00 Visit Stop Time 13:45 Total Visit Minutes 49 Visit Number 17 PT-OP-B Current Condition Start: 01/18/18 16:25 Freq: Status: Active Protocol: Document 01/18/18 16:26 EA (Rec: 01/18/18 16:54 EA [id number]) Current Condition History of Current Condition Onset Date year ago Current Complaints Bilateral knee pain Left > Right History of Current Condition Patient was under skilled PT last 2016 and was discharged to [facility] on September 2017. Patient returned today after three weeks x 3 session of cortisone shots. Patient referred by her primary care to improve knee dysfunction. 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 Knee injury almost two years ago intensified the condtion. X-rays reveals consistent with the diagnosis. Current active Diagnosis: Chronic back pain, Depression, ADD, Vision. Prior Treatments and Tests Skilled PT (06/2017-09/2017), x 3 cortisone shots in the last three weeks Developmental History Developmental History ADD Treatment Goals Patient/Caregiver Goals Patient want to eliminate pain and so she could perform walking and stari climbing without difficulty. Prior Functional Status Baseline Function- ADL's Independent Baseline Function- Mobility Independent Current Functional Impairments (Reported) Functional Limitations- ADL's Slight difficulty in ADL with weight bearing activities. Personal Factors Other Personal Factors That May Effect Chronicity of the condition. Therapy/Recovery depression. PT-OP-C Subjective Start: 01/18/18 16:25 Freq: Status: Active Protocol: Document 04/28/18 13:13 EA (Rec: 04/28/18 13:43 EA [id number]) OP-PT Subjective Patient Comments Patient Comments Patient reports left knee is quite sore today. PT-OP-G Mobility & Gait Start: 01/18/18 16:25 Freq: Status: Active Protocol: Document 01/18/18 16:22 EA (Rec: 01/18/18 17:35 EA [id number]) OP Mobility Evaluation Functional Movements Squats Single leg squat: Unable to to both leg due to pain Stair Climbing Evaluation Evaluation Level of Assist On Stairs Independent Devices Stair Climbing Assistive Devices None Technique/Endurance Stair Climbing Technique Step to Step Number of Steps Climbed 15 Comments Stair Climbing Comments Slight deviation/hand support during descent PT-OP-J Posture/Palpation/Skin Start: 01/18/18 16:25 Freq: Status: Active Protocol: Document 01/18/18 16:22 EA (Rec: 01/18/18 17:35 EA [id number]) Posture Evaluation Position Standing Evaluation View Anterior Knee Posture (L) Neutral (R) Neutral Palpation Assessment Location Two Palpation Location Patella, bilateral Palpation Details Grinding with pain during patellar compression One Palpation Location Medial superior pole and medial pole of bilateral patella Palpation Findings Tenderness Skin Assessment Circumference Measurement 1 Location Joint line: R 15 - Left 16.5 PT-OP-K Range of Motion Start: 01/18/18 16:25 Freq: Status: Active Protocol: Document 01/18/18 16:22 EA (Rec: 01/18/18 17:35 EA [id number]) Knee Goniometric Range of Motion Knee Measured in Degrees Right Knee ROM WFL Yes Left Knee ROM WFL Yes PT-OP-L Special Tests Start: 01/18/18 16:25 Freq: Status: Active Protocol: Document 01/18/18 16:22 EA (Rec: 01/18/18 17:35 EA [id number]) Special Tests Hip Special Tests Charlie Test Results slight positive Knee Special Tests Patellar Grind Test Test Results positive [place] Pica Test Test Results neagtive Kenna Test Test Results negative Moisés's Sign Test Results bilateral positive PT-OP-M Strength Start: 01/18/18 16:25 Freq: Status: Active Protocol: Document 01/18/18 16:22 EA (Rec: 01/18/18 17:35 EA [id number]) Knee Strength Knee Manual Muscle Testing Right Flexion (S2) 5 Normal Extension (L3) 5 Normal Left Flexion (S2) 5 Normal Extension (L3) 5 Normal PT-OP-Q Treatments Start: 01/18/18 16:25 Freq: Status: Active Protocol: Document 04/28/18 13:13 EA (Rec: 04/28/18 13:43 EA [id number]) Cardio Equipment Bicycle (Upright) Duration (Minutes) 10 Resistance 4 Seat Position 7 Gym Equipment Shuttle Recovery Bilateral Squats Details VMO w/ ball Resistance 125 Reps/Time x 12 reps x 3 Unilateral Squats Details 1/2 range Resistance 50 Shuttle Recovery Platform Stable Reps/Time x 12 reps x 1 Therapeutic Exercises Supine Exercises 3 Supine Exercise Name hip flexor and rectus femoris stretch Side bilateral 2 Supine Exercise Name HS/ITB stretch Reps/Minutes 60 sec holds Standing Exercises 2 Standing Exercise Name Rails steady lunge with knee foam supprt Reps/Minutes x10 nreps x 2 sets each leg 1 Standing Exercise Name Rails squat/sit to stand Reps/Minutes x10 reps x 2 sets PT-OP-R Modalities Start: 01/18/18 16:25 Freq: Status: Active Protocol: Document 04/28/18 13:43 EA (Rec: 04/28/18 13:44 EA [id number]) Hot Pack/Cold Pack Treatment Cold Pack Location both knees Patient Position Supine Treatment Duration (minutes) 10 Patient Tolerance Good PT-OP-T Assessment and Plan Start: 01/18/18 16:25 Freq: Status: Active Protocol: Document 04/28/18 13:13 EA (Rec: 04/28/18 13:43 EA [id number]) Physical Therapy Assessment Assessment Summary Assessment Patient tolerated treatment well with mild discomfort with lunges exercises. Patient recommended to comply with HEP . Physical Therapy Plan Next Visit Focus/Plan Next Note Type Treatment Note Next Visit Plan Possible discharge. Review HEP and/or provide HEP.
--- NOTE | 2018-05-05 15:58 | PT.OTN ---
Current Diagnoses Bilateral primary osteoarthritis of knee (05/05/18) Patellofemoral disorders, right knee (05/05/18) Physical Therapy Treatment Note PT-OP-A Visit Information Start: 01/18/18 16:25 Freq: Status: Active Protocol: Document 05/05/18 13:06 EA (Rec: 05/05/18 13:46 EA [id number]) Out-Patient Physical Therapy Visit Information Visit Information Visit Type Treatment Note Visit Start Time 13:00 Visit Stop Time 13:45 Total Visit Minutes 49 Visit Number 18 PT-OP-B Current Condition Start: 01/18/18 16:25 Freq: Status: Active Protocol: Document 01/18/18 16:26 EA (Rec: 01/18/18 16:54 EA [id number]) Current Condition History of Current Condition Onset Date year ago Current Complaints Bilateral knee pain Left > Right History of Current Condition Patient was under skilled PT last 2016 and was discharged to [facility] on September 2017. Patient returned today after three weeks x 3 session of cortisone shots. Patient referred by her primary care to improve knee dysfunction. 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 Knee injury almost two years ago intensified the condtion. X-rays reveals consistent with the diagnosis. Current active Diagnosis: Chronic back pain, Depression, ADD, Vision. Prior Treatments and Tests Skilled PT (06/2017-09/2017), x 3 cortisone shots in the last three weeks Developmental History Developmental History ADD Treatment Goals Patient/Caregiver Goals Patient want to eliminate pain and so she could perform walking and stari climbing without difficulty. Prior Functional Status Baseline Function- ADL's Independent Baseline Function- Mobility Independent Current Functional Impairments (Reported) Functional Limitations- ADL's Slight difficulty in ADL with weight bearing activities. Personal Factors Other Personal Factors That May Effect Chronicity of the condition. Therapy/Recovery depression. PT-OP-C Subjective Start: 01/18/18 16:25 Freq: Status: Active Protocol: Document 05/05/18 13:06 EA (Rec: 05/05/18 13:46 EA [id number]) OP-PT Subjective Patient Comments Patient Comments Pt report both knees are getting better and rated pain as 1.5/10. Pt reports would like to discharge today as she is going for a vacation. Patient Reported Progress Improving PT-OP-G Mobility & Gait Start: 01/18/18 16:25 Freq: Status: Active Protocol: Document 01/18/18 16:22 EA (Rec: 01/18/18 17:35 EA [id number]) OP Mobility Evaluation Functional Movements Squats Single leg squat: Unable to to both leg due to pain Stair Climbing Evaluation Evaluation Level of Assist On Stairs Independent Devices Stair Climbing Assistive Devices None Technique/Endurance Stair Climbing Technique Step to Step Number of Steps Climbed 15 Comments Stair Climbing Comments Slight deviation/hand support during descent PT-OP-J Posture/Palpation/Skin Start: 01/18/18 16:25 Freq: Status: Active Protocol: Document 01/18/18 16:22 EA (Rec: 01/18/18 17:35 EA [id number]) Posture Evaluation Position Standing Evaluation View Anterior Knee Posture (L) Neutral (R) Neutral Palpation Assessment Location Two Palpation Location Patella, bilateral Palpation Details Grinding with pain during patellar compression One Palpation Location Medial superior pole and medial pole of bilateral patella Palpation Findings Tenderness Skin Assessment Circumference Measurement 1 Location Joint line: R 15 - Left 16.5 PT-OP-K Range of Motion Start: 01/18/18 16:25 Freq: Status: Active Protocol: Document 01/18/18 16:22 EA (Rec: 01/18/18 17:35 EA [id number]) Knee Goniometric Range of Motion Knee Measured in Degrees Right Knee ROM WFL Yes Left Knee ROM WFL Yes PT-OP-L Special Tests Start: 01/18/18 16:25 Freq: Status: Active Protocol: Document 01/18/18 16:22 EA (Rec: 01/18/18 17:35 EA [id number]) Special Tests Hip Special Tests Charlie Test Results slight positive Knee Special Tests Patellar Grind Test Test Results positive Hugh[place] Pica Test Test Results neagtive Kenna Test Test Results negative Moisés's Sign Test Results bilateral positive PT-OP-M Strength Start: 01/18/18 16:25 Freq: Status: Active Protocol: Document 01/18/18 16:22 EA (Rec: 01/18/18 17:35 EA [id number]) Knee Strength Knee Manual Muscle Testing Right Flexion (S2) 5 Normal Extension (L3) 5 Normal Left Flexion (S2) 5 Normal Extension (L3) 5 Normal PT-OP-Q Treatments Start: 01/18/18 16:25 Freq: Status: Active Protocol: Document 05/05/18 13:06 EA (Rec: 05/05/18 13:46 EA [id number]) Cardio Equipment Bicycle (Upright) Duration (Minutes) 10 Resistance 4 Seat Position 7 Gym Equipment Cable Column (Body Solid) Leg Extension Details 30lbs Reps/Time x 12 reps x 2 sets Shuttle Recovery Bilateral Squats Details VMO w/ ball Resistance 125 Reps/Time x 12 reps x 3 Unilateral Squats Details 1/2 range Resistance 50 Shuttle Recovery Platform Stable Reps/Time x 12 reps x 1 Therapeutic Exercises Supine Exercises 1 Supine Exercise Name Hamstring stretch Comments HEP Sidelying Exercises 2 Sidelying Exercise Name quads stretch Comments HEP Standing Exercises 2 Standing Exercise Name Rails steady lunge with knee foam supprt Reps/Minutes x10 nreps x 2 sets each leg Comments HEP 1 Standing Exercise Name wall squat Reps/Minutes x 10 reps x 2 sets Comments HEP Self-Care/Home Management Treatment Education Patient Education Home Exercise Program Joint Protection Pain Management Safety PT-OP-R Modalities Start: 01/18/18 16:25 Freq: Status: Active Protocol: Document 05/05/18 13:46 EA (Rec: 05/05/18 13:46 EA [id number]) Hot Pack/Cold Pack Treatment Cold Pack Patient Position Hooklying Patient Tolerance Good PT-OP-T Assessment and Plan Start: 01/18/18 16:25 Freq: Status: Active Protocol: Document 05/05/18 13:06 EA (Rec: 05/05/18 13:46 EA [id number]) Physical Therapy Assessment Assessment Summary Assessment Patient tolerated treatment today with minor discomfort to lunges but tolerated half lunges. Overall patient is progressed. HEP given and exhibits good understanding. Patient is discharge today. Physical Therapy Plan Discharge Physical Therapy Discharge Reasons Patient Request Discharge Comments Discharge to [facility]
== END 2018-05-27 09:08 ==
LOC: PHYS 13:00
PROVIDERS: Family Provider Physical Medicine & Rehabilitation; PCP Physical Medicine & Rehabilitation; Visit Provider Orthopaedic Surgery
DX: M17.0 Bilateral primary osteoarthritis of knee (principal); M22.2X1 Patellofemoral disorders, right knee
CPT/HCPCS: 97010; 97014; 97110; 97140; 97161; 97535; G0283

== ENCOUNTER → 2019-07-11 09:56 | Outpatient (CLI) | payer MEDICARE, MEDICAID, SELFPAY ==
[2019-07-11 11:01] LABS: Add Manual Diff / Slide Review NO; Basophils Absolute Auto 0 /uL (0-100); Basophils Percent Auto 0.5 % (0-2); Eosinophils Absolute Auto 100 /uL (0-450); Eosinophils Percent Auto 1.7 % (2-4); Hematocrit 38.3 % (36-46); Hemoglobin 13.1 g/dL (12.0-16.0); Lymphocytes Absolute Auto 1600 /uL (1100-4500); Lymphocytes Percent Auto 26.8 % (25-40); Mean Corpuscular HGB Conc 34.3 % (30-36); Mean Corpuscular Hemoglobin 31.6 PG (26-34); Monocytes Absolute Auto 400 /uL (0-900); Monocytes Percent Auto 7.4 % (3-14); Neutrophils Absolute Auto 3800 /uL (1500-7000); Neutrophils Percent Auto 63.6 % (50-75); Platelet Count 214 X10^3/uL (150-400); Red Blood Cell Count 4.16 X10^6/uL (4.0-5.2); Red Cell Distribution Width 13.1 % (11.6-14.8); White Blood Cell Count 5.9 X10^3/uL (4.5-11.0)
[2019-07-11 11:16] LABS: Alanine Aminotransferase 18 IU/L (<35); Albumin 4.5 g/dL (3.5-5.0); Albumin Globulin Ratio 1.6 (1.0-2.8); Alkaline Phosphatase 102 U/L (38-126); Aspartate Aminotransferase 22 IU/L (14-36); BUN Creatinine Ratio 28.8 (6-22); Bilirubin Total 0.7 mg/dL (0.2-1.3); Blood Urea Nitrogen 23 mg/dL (7-17); Calcium 10.6 mg/dL (8.4-10.2); Carbon Dioxide 29 mmol/L (22-32); Chloride 103 mmol/L (98-107); Cholesterol 202 mg/dL (140-199); Estimated Glomerular Filt Rate > 60.0 mL/min (>60); Globulin 2.8 g/dL (1.7-4.1); Glucose 91 mg/dL (80-110); HDL Cholesterol 64 mg/dL (40-60); HEMOLYSIS < 15 (0-50); LDL Cholesterol Calculated 121 mg/dL (<100); Potassium 4.9 mmol/L (3.4-5.1); Sodium 138 mmol/L (137-145); Total Protein 7.3 g/dL (6.3-8.2); Triglycerides 87 mg/dL (35-150)
[2019-07-15 14:11] LABS: Parathyroid Hormone Int 50 pg/mL (14-64)
== END ==
PROVIDERS: PCP Physician Assistant; Visit Provider Physician Assistant
DX: E78.5 Hyperlipidemia, unspecified (principal); E83.52 Hypercalcemia
CPT/HCPCS: 36415; 80053; 80061; 83970; 85025

== ENCOUNTER → 2019-09-26 12:16 | Outpatient (CLI) | payer MEDICARE, MEDICAID, SELFPAY ==
--- NOTE | 2019-09-26 | DI.MG.S_ITS ---
BILATERAL DIGITAL SCREENING MAMMOGRAM 3D/2D WITH CAD: 09/26/2019 CLINICAL: Routine screening. Family history of breast cancer. Comparison is made to exams dated: 06/20/2015 mammogram, 07/27/2013 mammogram, and 06/16/2011 mammogram - [facility]. The tissue of both breasts is extremely dense, which lowers the sensitivity of mammography. Current study was also evaluated with a Computer Aided Detection (CAD) system. No significant masses, calcifications, or other findings are seen in either breast. There has been no significant interval change. IMPRESSION: NEGATIVE There is no mammographic evidence of malignancy. A 1 year screening mammogram is recommended. This exam was interpreted at Station ID: [id number]. NOTE: For mammograms, a report in lay terms will be sent to the patient. Approximately 15% of breast malignancies will not be visualized mammographically. In the management of a palpable breast mass, a negative mammogram must not discourage biopsy of a clinically suspicious lesion. Electronically Signed By: Michelle warner/pankaj:09/26/2019 14:54:43 letter sent: Normal Exam ACR BI-RADS Category 1: Negative [id number]
== END ==
PROVIDERS: PCP Physician Assistant; Referring Provider Physician Assistant; Visit Provider Physician Assistant
DX: Z12.31 Encounter for screening mammogram for malignant neoplasm of breast (principal); Z80.3 Family history of malignant neoplasm of breast
CPT/HCPCS: 77063; 77067

== ENCOUNTER 2020-04-01 15:09 | Emergency (ER) | payer MEDICARE, OTHER, MEDICAID, SELFPAY ==
[2020-04-01] VITALS (25 sets, daily range): BP systolic 112–190; BP diastolic 55–86; PULSE 49–95; RESP 13–34; TEMP 36.2–36.4; O2SAT 95–100; BMI 26.1
--- NOTE | 2020-04-01 15:29 | DI.RAD.S_ITS ---
PROCEDURE: XR CHEST 1V INDICATIONS: chest pain TECHNIQUE: One view of the chest was acquired. COMPARISON: None. FINDINGS: Surgical changes and devices: None. Lungs and pleura: Lungs are clear. No pleural effusions or pneumothorax. Mediastinum: Mediastinal contours appear normal. Heart size is normal. Bones and chest wall: No suspicious bony lesions. Overlying soft tissues appear unremarkable. IMPRESSION: No acute disease. Dictated by: Ar Summers M.D. on 04/01/2020 at 15:48 Approved by: Ar Summers M.D. on 04/01/2020 at 15:48
[2020-04-01 15:45] LABS: Add Manual Diff / Slide Review NO; Basophils Absolute Auto 0 /uL (0-100); Basophils Percent Auto 0.3 % (0-2); Eosinophils Absolute Auto 0 /uL (0-450); Hematocrit 37.6 % (36-46); Hemoglobin 12.6 g/dL (12.0-16.0); Lymphocytes Absolute Auto 800 /uL (1100-4500); Mean Corpuscular HGB Conc 33.5 % (30-36); Mean Corpuscular Volume 92.8 fL (80-100); Monocytes Absolute Auto 100 /uL (0-900); Monocytes Percent Auto 1.6 % (3-14); Neutrophils Absolute Auto 7400 /uL (1500-7000); Neutrophils Percent Auto 88.1 % (50-75); Platelet Count 205 X10^3/uL (150-400); Red Blood Cell Count 4.05 X10^6/uL (4.0-5.2); White Blood Cell Count 8.4 X10^3/uL (4.5-11.0)
[2020-04-01 15:52] LABS: Prothrombin Time 11.8 SECONDS (10.1-12.7)
[2020-04-01 15:54] LABS: PTT Partial Thromboplastin Tim 29 SECONDS (26.4-36.2)
[2020-04-01 15:56] LABS: Alanine Aminotransferase 24 IU/L (<35); Albumin 4.7 g/dL (3.5-5.0); Albumin Globulin Ratio 1.4 (1.0-2.8); Alkaline Phosphatase 125 U/L (38-126); Aspartate Aminotransferase 28 IU/L (14-36); Bilirubin Total 0.8 mg/dL (0.2-1.3); Blood Urea Nitrogen 27 mg/dL (7-17); Calcium 10.1 mg/dL (8.4-10.2); Carbon Dioxide 22 mmol/L (22-32); Chloride 102 mmol/L (98-107); Creatine Kinase 24 U/L (30-135); Estimated Glomerular Filt Rate > 60.0 mL/min (>60); Globulin 3.4 g/dL (1.7-4.1); Glucose 122 mg/dL (80-110); HEMOLYSIS < 15 (0-50); Lipase 23 U/L (23-300); Potassium 4.4 mmol/L (3.4-5.1); Sodium 134 mmol/L (137-145); Total Protein 8.1 g/dL (6.3-8.2)
[2020-04-01 16:07] LABS: Troponin I 0.063 ng/mL (0.01-0.034)
--- NOTE | 2020-04-01 16:34 | ED_ITS ---
HPI - Nausea/Vomiting/Diarrhea General Chief complaint: Nausea/Vomiting/Diarrhea Stated complaint: vomiting Time Seen by Provider: 04/01/20 16:30 Source: patient and family Mode of arrival: Ambulatory Limitations: no limitations History of Present Illness HPI Narrative: Patient is a 59-year-old female with no known medical history presenting with pain between her shoulder blades which started suddenly this morning. It is nonradiating, she denies any shortness of breath. She is noted to be quite hypertensive. She has family history of cardiac both parents and grandparents but none herself. Related Data Home Medications Medication Instructions Recorded Confirmed ranitidine HCl 150 mg PO BID #0 06/30/16 09/27/19 Previous Rx's Medication Instructions Recorded propranolol 60 mg capsule,24 60 mg PO DAILY #30 cap 09/15/19 hr,extended release dexmethylphenidate 20 mg 20 mg PO QAM #30 cap 12/27/19 capsule,extended release [id number] fluoxetine 20 mg capsule 60 mg PO QDAY #90 cap 02/14/20 Allergies Allergy/AdvReac Type Severity Reaction Status Date / Time Penicillins [PENICILLINS] Allergy Mild nausea Verified 04/01/20 15:17 Review of Systems Review of Systems ROS Unobtainable: All systems reviewed & are unremarkable except as noted in HPI and below Constitutional Constitutional: Denies chills, Denies fever(s), Denies lethargy and Denies weakness Eyes Eyes: Denies change in vision, Denies eye discharge, Denies irritation and Denies loss of vision Cardiovascular Cardiovascular: Reports as per HPI, Denies chest pain, Denies irregular heart rhythm, Denies palpitations and Denies dyspnea Respiratory Respiratory: Denies dyspnea Gastrointestinal Gastrointestinal: Denies abdominal pain, Denies change in bowel habits, Denies diarrhea, Denies nausea and Denies vomiting Integumentary/Breasts Skin/Breast: Denies pruritus, Denies erythema, Denies rash and Denies wounds Neurologic Neurologic: Denies loss of vision and Denies weakness Endocrine Endocrine: Denies palpitations Patient History Social History Smoking Status: Former smoker Smoking Status: Former smoker Exam Initial Vital Signs Initial Vital Signs: Vital Signs Temperature 97.2 F L 04/01/20 15:18 Pulse Rate 49 L 04/01/20 15:18 Respiratory Rate 16 04/01/20 15:18 Blood Pressure 190/77 H 04/01/20 15:18 Pulse Oximetry 99 04/01/20 15:18 GENERAL: Well-appearing, well-nourished and in no acute distress. HEENT: Head atraumatic,EOMI, pupils reactive, face symmetric, moist mucous m embranes CARDIOVASCULAR: Regular rate and rhythm without murmurs, rubs or gallops. RESPIRATORY: Breath sounds equal bilaterally, no wheezes rales or rhonchi. ABDOMEN: Soft, nontender. Normoactive bowel sounds all 4 quadrants. No guarding or rebound. EXTREMITIES: Normal range of motion, no clubbing or edema. Neurovascularly intact BACK: No vertebral tenderness no step-offs no sign of trauma NEUROLOGICAL: Alert and oriented x4.Normal gait and speech. Cranial nerves II through XII grossly intact. SKIN: Warm, dry, no laceration, no petechiae, no rashes or lesions. Course Orders Ordered: ED Orders 04/01/20 15:29 XR chest 1V Stat EKG-12 Lead Stat 04/01/20 15:36 Complete Blood Count AUTO DIFF Stat Comprehensive Metabolic Panel Stat Lipase Stat Partial Thromboplastin Time Stat Prothrombin Time INR Stat Troponin & CK Cardiac Panel Stat 04/01/20 16:34 EKG-12 Lead Stat 04/01/20 16:58 CT angio chest abdomen pelvis Stat 04/01/20 17:48 Trop I [Troponin I] Stat Nitroglycerin (Nitroglycerin) 50 mg in 250 mls @ 1.5 mls/hr IV TITRATE GINA; Protocol Last Titration: 04/01/20 19:40 Dose: 10 mcg/min, 3 mls/hr Documented by: Titration: 04/01/20 19:24 Dose: 0 mcg/min, 0 mls/hr Documented by: Admin: 04/01/20 19:14 Dose: 5 mcg/min, 1.5 mls/hr Documented by: KINA Sodium Chloride (Normal Saline 0.9%) 1,000 mls @ 100 mls/hr IV BOLUS ONE Stop: 04/02/20 05:24 Last Admin: 04/01/20 20:11 Dose: 100 mls/hr Documented by: KINA Discontinued Medications Heparin Sodium (Porcine) (Heparin) 4,000 unit IV NOW ONE Stop: 04/01/20 18:46 Last Admin: 04/01/20 20:10 Dose: Not Given Documented by: KINA Heparin Sodium/Dextrose (Heparin Drip) 25,000 unit in 500 mls @ 18.724 mls/hr IV CONT GINA; Protocol Last Admin: 04/01/20 20:10 Dose: Not Given Documented by: KINA Morphine Sulfate (Morphine) 2 mg IV NOW ONE Stop: 04/01/20 16:59 Last Admin: 04/01/20 17:08 Dose: 2 mg Documented by: KINA Nitroglycerin (Nitrostat) 0.4 mg SL NOW ONE Stop: 04/01/20 16:59 Last Admin: 04/01/20 17:09 Dose: 0.4 mg Documented by: KINA Nitroglycerin (Nitrostat) 0.4 mg SL NOW ONE Stop: 04/01/20 17:45 Last Admin: 04/01/20 17:45 Dose: 0.4 mg Documented by: KINA Vital Signs Vital signs: Vital Signs - 8 hr 04/01/20 15:18 04/01/20 16:48 04/01/20 16:49 Temperature 97.2 F L Pulse Rate 49 L 49 L 50 L Respiratory Rate 16 16 18 Blood Pressure 190/77 H 189/79 H Pulse Oximetry 99 100 04/01/20 16:52 04/01/20 17:00 04/01/20 17:09 Temperature Pulse Rate 52 L 50 L 53 L Respiratory Rate 17 13 Blood Pressure 184/86 H 184/86 H Pulse Oximetry 100 100 04/01/20 17:34 04/01/20 17:36 04/01/20 17:45 Temperature Pulse Rate 61 57 L 56 L Respiratory Rate 16 Blood Pressure 144/67 H 144/67 H Pulse Oximetry 97 99 04/01/20 18:13 04/01/20 18:14 04/01/20 18:19 Temperature Pulse Rate 51 L 53 L 95 H Respiratory Rate 16 16 18 Blood Pressure 145/68 H 145/68 H Pulse Oximetry 99 99 99 04/01/20 18:30 04/01/20 19:00 04/01/20 19:15 Temperature Pulse Rate 50 L 62 54 L Respiratory Rate 20 34 H 26 H Blood Pressure 126/60 133/61 Pulse Oximetry 99 99 99 04/01/20 19:22 04/01/20 19:30 Temperature Pulse Rate 56 L 54 L Respiratory Rate 22 20 Blood Pressure 141/63 H 133/60 Pulse Oximetry 99 MDM - Nausea/Vomiting/Diarrhea Lab Data Attestation: I reviewed the patient's lab results. Result diagrams: 04/01/20 15:36 04/01/20 15:36 Labs: Lab Results 04/01/20 04/01/20 04/01/20 Range/Units 15:36 15:36 15:36 WBC 8.4 (4.5-11.0) X10^3/uL RBC 4.05 (4.0-5.2) X10^6/uL Hgb 12.6 (12.0-16.0) g/dL Hct 37.6 (36-46) % MCV 92.8 (80-100) fL MCH 31.0 (26-34) PG MCHC 33.5 (30-36) % RDW 13.0 (11.6-14.8) % Plt Count 205 (150-400) X10^3/uL Neut % (Auto) 88.1 H (50-75) % Lymph % (Auto) 10.0 L (25-40) % [place] % (Auto) 1.6 L (3-14) % Eos % (Auto) 0.0 L (2-4) % Baso % (Auto) 0.3 (0-2) % Neut # (Auto) 7400 H (2412-6946) /uL Lymph # (Auto) 800 L (7720-6486) /uL [place] # (Auto) 100 (0-900) /uL Eos # (Auto) 0 (0-450) /uL Baso # (Auto) 0 (0-100) /uL PT 11.8 (10.1-12.7) SECONDS INR 1.0 (0.9-1.3) APTT 29 (26.4-36.2) SECONDS Sodium 134 L (137-145) mmol/L Potassium 4.4 (3.4-5.1) mmol/L Chloride 102 (98-107) mmol/L Carbon Dioxide 22 (22-32) mmol/L BUN 27 H (7-17) mg/dL Creatinine 0.73 (0.52-1.04) mg/dL Estimated GFR > 60.0 (>60) mL/min BUN/Creatinine Ratio 37.0 H (6-22) Glucose 122 H (80-110) mg/dL Calcium 10.1 (8.4-10.2) mg/dL Total Bilirubin 0.8 (0.2-1.3) mg/dL AST 28 (14-36) IU/L ALT 24 (<35) IU/L Alkaline Phosphatase 125 (38-126) U/L Total Creatine Kinase 24 L (30-135) U/L CK-MB (CK-2) TNP CK-MB (CK-2) Rel Index TNP Troponin I 0.063 H (0.01-0.034) ng/mL Total Protein 8.1 (6.3-8.2) g/dL Albumin 4.7 (3.5-5.0) g/dL Globulin 3.4 (1.7-4.1) g/dL Albumin/Globulin Ratio 1.4 (1.0-2.8) Lipase 23 (23-300) U/L / Range/Units 17:48 WBC (4.5-11.0) X10^3/uL RBC (4.0-5.2) X10^6/uL Hgb (12.0-16.0) g/dL Hct (36-46) % MCV (80-100) fL MCH (26-34) PG MCHC (30-36) % RDW (11.6-14.8) % Plt Count (150-400) X10^3/uL Neut % (Auto) (50-75) % Lymph % (Auto) (25-40) % [place] % (Auto) (3-14) % Eos % (Auto) (2-4) % Baso % (Auto) (0-2) % Neut # (Auto) (5651-6309) /uL Lymph # (Auto) (2178-6729) /uL [place] # (Auto) (0-900) /uL Eos # (Auto) (0-450) /uL Baso # (Auto) (0-100) /uL PT (10.1-12.7) SECONDS INR (0.9-1.3) APTT (26.4-36.2) SECONDS Sodium (137-145) mmol/L Potassium (3.4-5.1) mmol/L Chloride (98-107) mmol/L Carbon Dioxide (22-32) mmol/L BUN (7-17) mg/dL Creatinine (0.52-1.04) mg/dL Estimated GFR (>60) mL/min BUN/Creatinine Ratio (6-22) Glucose (80-110) mg/dL Calcium (8.4-10.2) mg/dL Total Bilirubin (0.2-1.3) mg/dL AST (14-36) IU/L ALT (<35) IU/L Alkaline Phosphatase (38-126) U/L Total Creatine Kinase (30-135) U/L CK-MB (CK-2) CK-MB (CK-2) Rel Index Troponin I 0.086 H (0.01-0.034) ng/mL Total Protein (6.3-8.2) g/dL Albumin (3.5-5.0) g/dL Globulin (1.7-4.1) g/dL Albumin/Globulin Ratio (1.0-2.8) Lipase (23-300) U/L Imaging Data Chest x-ray: Radiologist's Impression: PROCEDURE: XR CHEST 1V INDICATIONS: chest pain TECHNIQUE: One view of the chest was acquired. COMPARISON: None. FINDINGS: Surgical changes and devices: None. Lungs and pleura: Lungs are clear. No pleural effusions or pneumothorax. Mediastinum: Mediastinal contours appear normal. Heart size is normal. Bones and chest wall: No suspicious bony lesions. Overlying soft tissues appear unremarkable. IMPRESSION: No acute disease. Dictated by: Ar Summers M.D. on 04/01/2020 at 15:48 Approved by: Ar Summers M.D. on 04/01/2020 at 15:48 ECG Data Attestation: I personally reviewed and interpreted this ECG as follows: Prior ECG tracings: not available for review Interpretation: Normal sinus rhythm rate 47 p.r. interval 166 QRS 8892 MDM Narrative Medical decision making narrative: Patient has pain between her scapula is quite hypertensive concern for dissection. CT angio does not show dissection or PE at this time. She is given nitroglycerin and morphine in continues to have pain but has significant improvement with nitro. Nitro drip is started. 7:[address] boateng, cardiology agrees with transfer to [place] does not think heparin drip is necessary at this time but does agree with nitro drip [address] Cope hospitalist updated patient's symptoms test results agrees with transfer and admission. Critical Care Time Critical Care Time Critical Care Time: Yes Total Critical Care Time: 30 Attestation: The high probability of a clinically significant, sudden or life threatening deterioration of the [cardiovascular] system(s) required my full and direct attention, intervention and personal management. The aggregate critical care time was 30 minutes. This time is in addition to time spent performing reported procedures but includes the following: [x] Data Review and interpretation [x] Patient assessment and monitoring of vital signs [x] Documentation [x] Medication orders and management Discharge Plan Departure Patient Disposition: [facility] Clinical Impression: ACS (acute coronary syndrome) Prescriptions: No Action ranitidine HCl 150 MG tablet 150 mg PO BID Qty: 0 RF: 0 propranolol 60 mg capsule,extended release 24 hr 60 mg PO DAILY Qty: 30 RF: 2 dexmethylphenidate 20 mg capsule,ER biphasic 50-50 20 mg PO QAM Qty: 30 RF: 0 fluoxetine 20 mg capsule 60 mg PO QDAY Qty: 90 RF: 2 Referrals: Blanca Weaver PA-C [Primary Care Provider] -
--- NOTE | 2020-04-01 16:58 | DI.CT.S_ITS ---
PROCEDURE: CT ANGIO CHEST ABDOMEN PELVIS INDICATIONS: pain between shoulder blades TECHNIQUE: Precontrast 5 mm thick sections acquired from the lung apices to the iliac crests. After the administration of intravenous contrast, 2.5 mm thick sections again acquired from the lung apices to the iliac crests. Maximum intensity projection (MIP) oblique sagittal and coronal reformats were then acquired. For radiation dose reduction, the following was used: automated exposure control. COMPARISON: [facility], CR, XR CHEST 1V, 04/01/2020, 15:40. FINDINGS: Image quality: Excellent. AORTA: Aorta is normal in caliber. No dissection. No significant atherosclerotic plaques. The great vessels are of normal caliber and configuration. Celiac trunk and mesenteric arteries are patent. Renal arteries are also patent. Iliac arteries are normal in caliber and patent. CHEST: Lungs and pleura: No acute airspace opacities. No pleural effusions or pneumothorax. Central and peripheral airways are patent and normal in caliber. Mediastinum: Heart size is normal. No pericardial effusion. No mediastinal or hilar adenopathy by size criteria. Central pulmonary arteries are normal in size. Esophagus is normal in caliber. Small hiatal hernias. There is concentric thickening at the GE junction. Bones and chest wall: No axillary adenopathy by size criteria. Thyroid gland is normal . No suspicious bony lesions. No vertebral body compression fractures. ABDOMEN: Vasculature: Solid organs: Liver is normal in size and enhancement. Gallbladder is normal. Biliary system is non dilated. There is a 1.2 x 1.9 cm cystic mass in the pancreatic head. Spleen is normal in size and enhancement. No adrenal nodules. Both kidneys are normal in size and enhancement, without hydronephrosis. Peritoneum and bowel: No free fluid or air. Bowel loops are normal in caliber and wall thickness. Nodes and vessels: No retroperitoneal or mesenteric adenopathy by size criteria. Inferior vena cava is normal in morphology. Miscellaneous: No ventral hernias. PELVIS: Genitourinary: Bladder wall thickness is normal. Uterus is normal. No adnexal mass. No pathological free-fluid. Miscellaneous: No inguinal hernias or adenopathy. No ventral hernias. Bones: No suspicious bony lesions. No vertebral body compression fractures. Mild degenerative changes in thoracic and lumbar spine. IMPRESSION: 1. No aortic aneurysm or dissection. Atherosclerosis. 2. Small hiatal hernia. There is mild concentric thickening of distal esophagus. A follow-up esophagram or upper endoscopy is suggested. 3. Mild degenerative changes in thoracic and lumbar spine. Dictated by: Nelida Love M.D. on 04/01/2020 at 16:42 Approved by: Nelida Love M.D. on 04/01/2020 at 16:53
[2020-04-01] MEDS: MORPHINE 2 MG/ML INJ IV (17:08)
[2020-04-01] MEDS: NITROGLYCERIN 0.4 MG SL TAB SL ×2 (17:09→17:45)
[2020-04-01 18:42] LABS: Troponin I 0.086 ng/mL (0.01-0.034)
[2020-04-01] MEDS: HEPARIN DRIP 25,000 UNIT/500 ML IV.SOLN 18.724 UNIT IV (19:10)
[2020-04-01] MEDS: HEPARIN 5,000 UNIT/ML VIAL 4000 UNIT IV (19:10)
[2020-04-01] MEDS: NITROGLYCERIN 50 MG/250 ML INFUS..BTL IV (19:14)
--- NOTE | 2020-04-01 19:41 | PC.NURSE ---
Pt reporting pain 4/10 on nitro gtt at 5 mcg, BP 133/60. Ntg increased to 10mcg/min. Pt knows to notify RN for worsening pain/SOB/change in condition.
[2020-04-01] MEDS: SODIUM CHLORIDE 0.9% 1,000 ML 100 ML IV (20:11)
[2020-04-01 20:26] LABS: COVID19 -Nasal RAPID Negative (Negative)
--- NOTE | 2020-04-01 20:54 | PC.NURSE ---
Pt laying in bed with fluids and nitro infusing. Pt states pain is currently 4/10, sub scapular radiating down. She does report some recurrent chronic back pain. Vital signs stable and in goal range of Dr. Conte orders. denies other complaints at this time.
== END 2020-04-01 21:18 | disposition short-term general hospital (02) ==
PROVIDERS: Emergency Provider Emergency Medicine; PCP Physician Assistant
DX: I24.9 Acute ischemic heart disease, unspecified (principal); I10 Essential (primary) hypertension; R07.9 Chest pain, unspecified
CPT/HCPCS: 36415; 71045; 71275; 74174; 80053; 82550; 83690; 84484; 85025; 85610; 85730; 87635; 93005; 93010; 96361; 96374; 99284; 99291; J1644; J2270; Q9967

== ENCOUNTER → 2020-05-08 14:36 | Outpatient (CLI) | payer MEDICARE, OTHER, MEDICAID, SELFPAY | PROVIDERS: PCP Physician Assistant; Referring Provider Physician Assistant; Visit Provider Physician Assistant | DX: R11.2 Nausea with vomiting, unspecified (principal); Z53.9 Procedure and treatment not carried out, unspecified reason ==

== ENCOUNTER → 2020-05-15 10:27 | Outpatient (CLI) | payer MEDICARE, OTHER, MEDICAID, SELFPAY ==
--- NOTE | 2020-05-15 | DI.US.S_ITS ---
PROCEDURE: US ABDOMEN COMPLETE INDICATIONS: NAUSEA AND VOMITING/RIGHT SHOULDER PAIN TECHNIQUE: Real-time scanning was performed of the abdominal and retroperitoneal organs, with image documentation. COMPARISON: None. FINDINGS: Liver: Liver is normal in size and homogeneous in echotexture. Gallbladder: No findings of gallstones or sludge are seen. The gallbladder wall is not thickened, measuring 3 mm or less. There is a hyperechoic, homogeneous, avascular focus along the inner wall of the gallbladder anteriorly that measures up to 3.7 mm, which may be related to a gallbladder wall polyp. No specific pericholecystic fluid is seen. The sonographic Chaidez sign is negative. Biliary ducts: Intrahepatic bile ducts are non-dilated. The extrahepatic bile ducts are not well seen, yet the visualized portions measure up to 1 mm. Normal is 6-7 mm or less in diameter, or 10 mm or less post-cholecystectomy. Pancreas: A complex cyst is seen involving the pancreatic head that measures 1.8 x 2.7 x 1.6 cm. Spleen: Spleen is normal in size and homogeneous in echotexture. Kidneys: Kidneys are normal in size and echotexture. Right kidney measures 10.3 cm long; left kidney measures 11.1 cm long. No nephrolithiasis. No solid masses. Mild bilateral hydronephrosis is seen. Aorta: Visualized aorta is normal in caliber at less than 3 cm. Iliacs: Proximal common iliac arteries are normal in caliber at less than 2.5 cm. IVC: Intrahepatic inferior vena cava is patent. Miscellaneous: No free abdominal fluid. IMPRESSION: Apparent gallbladder wall polyp, without additional sonographic abnormalities of the gallbladder. Poor visualization of the extrahepatic bile ducts, without biliary dilatation. A cystic focus is again seen involving the head of the pancreas. Mild bilateral hydronephrosis can be seen. Dictated by: Jad Solorzano M.D. on 05/15/2020 at 11:54 Approved by: Jad Solorzano M.D. on 05/15/2020 at 11:57
== END ==
PROVIDERS: PCP Physician Assistant; Referring Provider Physician Assistant; Visit Provider Physician Assistant
DX: M25.511 Pain in right shoulder (principal); R11.2 Nausea with vomiting, unspecified; K86.2 Cyst of pancreas; N13.30 Unspecified hydronephrosis
CPT/HCPCS: 76700

== ENCOUNTER → 2020-07-15 09:27 | Outpatient (CLI) | payer MEDICARE, OTHER, MEDICAID, SELFPAY ==
[2020-07-15 10:15] LABS: Add Manual Diff / Slide Review NO; Basophils Absolute Auto 0 /uL (0-100); Basophils Percent Auto 0.5 % (0-2); Eosinophils Absolute Auto 100 /uL (0-450); Eosinophils Percent Auto 2.6 % (2-4); Hematocrit 35.6 % (36-46); Lymphocytes Absolute Auto 1600 /uL (1100-4500); Mean Corpuscular HGB Conc 33.7 % (30-36); Mean Corpuscular Volume 92.2 fL (80-100); Monocytes Absolute Auto 400 /uL (0-900); Monocytes Percent Auto 7.7 % (3-14); Neutrophils Absolute Auto 2800 /uL (1500-7000); Neutrophils Percent Auto 56.2 % (50-75); Platelet Count 194 X10^3/uL (150-400); Red Blood Cell Count 3.86 X10^6/uL (4.0-5.2); White Blood Cell Count 4.9 X10^3/uL (4.5-11.0)
[2020-07-15 10:48] LABS: Alanine Aminotransferase 18 IU/L (<35); Albumin 4.2 g/dL (3.5-5.0); Albumin Globulin Ratio 1.4 (1.0-2.8); Alkaline Phosphatase 104 U/L (38-126); Aspartate Aminotransferase 22 IU/L (14-36); BUN Creatinine Ratio 30.3 (6-22); Bilirubin Total 0.4 mg/dL (0.2-1.3); Blood Urea Nitrogen 23 mg/dL (7-17); Calcium 9.8 mg/dL (8.4-10.2); Carbon Dioxide 30 mmol/L (22-32); Chloride 104 mmol/L (98-107); Cholesterol 235 mg/dL (140-199); Estimated Glomerular Filt Rate > 60.0 mL/min (>60); Globulin 3.1 g/dL (1.7-4.1); Glucose 89 mg/dL (80-110); HDL Cholesterol 56 mg/dL (40-60); HEMOLYSIS < 15 (0-50); LDL Cholesterol Calculated 144 mg/dL (<100); Potassium 4.1 mmol/L (3.4-5.1); Sodium 136 mmol/L (137-145); Total Protein 7.3 g/dL (6.3-8.2); Triglycerides 177 mg/dL (35-150)
[2020-07-15 10:50] LABS: C-Reactive Protein Quant < 0.5 mg/dL (<1.0)
[2020-07-15 11:05] LABS: Erythrocyte Sedimentation Rate 13 MM/HR (0-20)
== END ==
PROVIDERS: PCP Physician Assistant; Referring Provider Physician Assistant; Visit Provider Physician Assistant
DX: E78.2 Mixed hyperlipidemia (principal); M79.10 Myalgia, unspecified site
CPT/HCPCS: 36415; 80053; 80061; 85025; 85651; 86140

== ENCOUNTER → 2021-09-12 15:49 | Outpatient (CLI) | payer MEDICARE, OTHER, MEDICAID, SELFPAY ==
--- NOTE | 2021-09-12 | DI.MG.S_ITS ---
BILATERAL DIGITAL SCREENING MAMMOGRAM 3D/2D WITH CAD: 09/12/2021 CLINICAL: Routine screening. Family history of breast cancer. Comparison is made to exams dated: 09/26/2019 mammogram, 06/20/2015 mammogram, and 07/27/2013 mammogram - [facility]. The tissue of both breasts is extremely dense, which lowers the sensitivity of mammography. Current study was also evaluated with a Computer Aided Detection (CAD) system. No significant masses, calcifications, or other findings are seen in either breast. There has been no significant interval change. IMPRESSION: NEGATIVE There is no mammographic evidence of malignancy. A 1 year screening mammogram is recommended. This exam was interpreted at Station ID: [id number]. NOTE: For mammograms, a report in lay terms will be sent to the patient. Approximately 15% of breast malignancies will not be visualized mammographically. In the management of a palpable breast mass, a negative mammogram must not discourage biopsy of a clinically suspicious lesion. Electronically Signed By: Samuel Miller acr/penrad:09/12/2021 16:49:19 letter sent: Normal Exam ACR BI-RADS Category 1: Negative [id number]
== END ==
PROVIDERS: PCP Physician Assistant; Referring Provider Physician Assistant; Visit Provider Physician Assistant
DX: Z12.31 Encounter for screening mammogram for malignant neoplasm of breast (principal); Z80.3 Family history of malignant neoplasm of breast
CPT/HCPCS: 77063; 77067

== ENCOUNTER → 2022-06-02 15:26 | Outpatient (CLI) | payer MEDICARE, OTHER, MEDICAID, SELFPAY ==
--- NOTE | 2022-06-02 | DI.CT.S_ITS ---
PROCEDURE: CT FACIAL BONES WO CON INDICATIONS: Contusion of other part of head TECHNIQUE: Noncontrast 2.5 mm thick axial images acquired from the mandible through the frontal sinuses, with coronal and sagittal reformatting. For radiation dose reduction, the following was used: automated exposure control, adjustment of mA and/or kV according to patient size. COMPARISON: None. FINDINGS: Image quality: Excellent. Bones and teeth: Orbital bowie are intact. Sinus bowie show no fracture or deformity. Nasal bones and septum are intact. Visualized portions of the mandible demonstrate no fractures or subluxation. Zygomatic arches are intact. Pterygoid plates are intact. Visualized portions of the skull base and auditory canals are intact. Sinuses: Paranasal sinuses are aerated, without fluid levels, mucosal thickening, or mucoceles. Mastoid air cells are aerated. Soft tissues: Left pre malar and infraorbital superficial soft tissue contusion. No enlarged lymph nodes. No soft tissue lacerations or debris. Vascular: Visualized vascular structures appear normal in the absence of contrast. Bony vascular foramina and canals are intact. IMPRESSION: Left infraorbital and pre malar soft tissue contusion with no fracture Dictated by: Carlos Enrique Conn M.D. on 06/02/2022 at 16:29 Approved by: Carlos Enrique Conn M.D. on 06/02/2022 at 16:37
== END ==
PROVIDERS: PCP Physician Assistant; Referring Provider Physician Assistant; Visit Provider Physician Assistant
DX: S00.83XA Contusion of other part of head, initial encounter (principal); W18.30XA Fall on same level, unspecified, initial encounter
CPT/HCPCS: 70486

== ENCOUNTER 2022-11-16 10:50 | Day surgery (SDC) | payer MEDICARE, MEDICAID, SELFPAY ==
--- NOTE | 2022-11-16 | PATH_ITS ---
[facility] Accession Number: [id number] No. of containers..01 Tissue . 01 Material submitted: . colon - ASCENDING COLON POLYPS . 01 Diagnosis: Ascending Colon Polyps: Sessile serrated adenomas and tubular adenomas. MRV 11/19/2022 1409 Local . 01 Electronically signed: . Jamie Suarez MD, PhD, Pathologist NPI- [id number] . 01 Gross description: . ASCENDING COLON POLYPS: Received in formalin are multiple fragment(s) of brown, soft tissue measuring 1.0 x 0.5 x 0.1 cm in aggregate submitted entirely in 1 cassette(s) /CPE 11/18/2022 0552 Local . 01 Pathologist provided ICD-10: D12.2 . 01 CPT . 655753 Specimen Comment: A courtesy copy of this report has been sent to [phone] Performed at: 01 [facility] [address] [place] [address], [place], [place] [id number] MD Jose A Rogers MD Phone: [phone]
[2022-11-16 11:08] VITALS: BP 131/62; PULSE 59; RESP 16; TEMP 36.7; O2SAT 100; BMI 27.3
--- NOTE | 2022-11-16 11:10 | PM.HP.1 ---
History of Present Illness History of Present Illness Date Patient Seen: 11/16/22 Time Patient Seen: 11:11 Chief complaint: SDC Narrative: Here for colon cancer screening. [facility] Social History Smoking Status: Former smoker Meds Home Medications and Allergies Home Medications Medication Instructions Recorded Confirmed Type oxybutynin chloride 5 mg 5 mg PO QAM 04/01/20 11/16/22 History tablet,extended release 24 hr propranolol 60 mg capsule,24 60 mg PO QAM 04/01/20 11/16/22 History hr,extended release aspirin 81 mg capsule 81 mg PO DAILY 11/16/22 11/16/22 History fluoxetine 20 mg tablet 20 mg PO DAILY 11/16/22 11/16/22 History Allergies Allergy/AdvReac Type Severity Reaction Status Date / Time Penicillins [PENICILLINS] Allergy Mild nausea Verified 11/16/22 11:02 Review of Systems Review of Systems ROS: Yes All systems reviewed with the patient and are negative except as otherwise documented Exam Const General: cooperative HENMT Head: normal to inspection Eyes General: appearance normal, both eyes and all related structures Neck Neck: normal visual inspection Chest Chest: normal inspection of the chest Resp Effort & Inspection: normal respiratory effort Cardio Rate: regular rate GI Inspection: normal to inspection Skin General: no rashes or lesions noted Neuro General: patient alert and patient awake Extrem General: normal to inspection and no pedal edema Psych Appearance: grossly normal Assessment & Plan Assessment & Plan narrative: 62-year-old female here for colon cancer screening. Colonoscopy is pursued today.
--- NOTE | 2022-11-16 11:12 | PM.PREOP ---
Pre-operative Note Interval Note History & Physical reviewed/Exam performed by Physician: Yes Changes to H&P: No ASA Class (for procedural sedation): II
[2022-11-16] MEDS: LACTATED RINGERS 1,000 ML 120 ML IV (11:25)
--- NOTE | 2022-11-16 11:52 | PM.OP.COLON ---
Operative Date/Time/Diagnoses Date of procedure: 11/16/22 Time of procedure: 11:52 Pre-op diagnosis: Colon cancer screening. Post-op diagnosis: same Procedure & Clinicians Study performed: Colonoscopy with hot snare and cold snare polypectomy Same procedure as scheduled: Yes Indications: Colon cancer screening Surgeon: Roverto Chang Procedure Notes SCOAP/Timeout: Done Procedure in detail: After the risks and benefits were explained, written and verbal informed consent was obtained. The patient was brought into the procedure room and placed into the left lateral decubitus position. Please see anesthesia notes for sedation details. Digital rectal examination was accomplished. The scope was introduced into the patient and advanced under direct visualization to the cecum as identified by the appendiceal orifice and ileocecal valve. The scope was slowly withdrawn to carefully examine the mucosa for any defects or lesions. Comprehensive imaging was accomplished throughout the rectum including the dentate line. The colon was decompressed, the scope was then removed from the patient who tolerated the procedure well. Bowel prep adequate Pediatric colonoscope Scope withdrawal time: 14 minutes Sedation minutes: 23 Complications: none Impression: Patient had a fairly redundant colon. In the ascending there was a small 5 mm polyp removed with cold snare and the larger 10 mm sessile polyp removed with hot snare. No additional pathology was appreciated throughout. These polyps were submitted together. Endoscopic diagnosis 1. Colon polyps 2. Otherwise visually unremarkable colonoscopy Post-procedure Plan for aftercare: 1. Await histopathology. 2. If there are adenomatous features identified, repeat colonoscopy will be suggested for 3 years' time. Disposition: PACU
[2022-11-16 11:54] VITALS: BP 122/70; PULSE 52; RESP 12; TEMP 36.2; O2SAT 99
[2022-11-16 11:59] VITALS: BP 92/66; PULSE 55; RESP 16; O2SAT 100
[2022-11-16 12:04] VITALS: BP 104/64; PULSE 54; RESP 12; O2SAT 99
[2022-11-16 12:07] VITALS: BP 108/53; PULSE 54; RESP 16; TEMP 36.7; O2SAT 100
== END 2022-11-16 12:40 | disposition home or self-care (01) ==
PROVIDERS: PCP Physician Assistant; Referring Provider Internal Medicine Gastroenterology; Visit Provider Internal Medicine Gastroenterology
PROC: 0DJD8ZZ Inspection of Lower Intestinal Tract, Via Natural or Artificial Opening Endoscopic (ICD-10-PCS; CPT 45378; principal; 2022-11-16 12:00)
DX: Z12.11 Encounter for screening for malignant neoplasm of colon (principal); D12.2 Benign neoplasm of ascending colon
CPT/HCPCS: 45385; J2704

== ENCOUNTER 2023-11-07 19:30 | Emergency (ER) | payer MEDICARE, MEDICAID, SELFPAY ==
[2023-11-07 19:40] VITALS: BP 165/70; PULSE 69; RESP 17; TEMP 36.6; O2SAT 99; BMI 28.1
--- NOTE | 2023-11-07 19:47 | ED_ITS ---
HPI - Fall General Chief Complaint: Fall Stated Complaint: GLF, face injury Time Seen by Provider: 11/07/23 19:42 Source: patient and family Mode of arrival: Wheelchair History of Present Illness HPI Narrative: Patient is a 63-year-old female who is not on anticoagulation who is here with family/friends. Patient stated that she was shuffling her feet ?fooling around? when she fell forward and hitting her head on the ground. No loss of consciousness. No extremity injuries. Initially describes no headache or neck pain. Did sustain a cut above the left eye. No vision changes. No dental pain. She did require help getting up afterwards. Prior to the fall did not have chest pain, shortness of breath, lightheadedness or palpitations. Related Data Home Medications Medication Instructions Recorded Confirmed oxybutynin chloride 5 mg 5 mg PO QAM 04/01/20 11/16/22 tablet,extended release 24 hr propranolol 60 mg capsule,24 60 mg PO QAM 04/01/20 11/16/22 hr,extended release aspirin 81 mg capsule 81 mg PO DAILY 11/16/22 11/16/22 fluoxetine 20 mg tablet 20 mg PO DAILY 11/16/22 11/16/22 Allergies Allergy/AdvReac Type Severity Reaction Status Date / Time Penicillins [PENICILLINS] Allergy Mild nausea Verified 11/07/23 19:40 Review of Systems Constitutional Constitutional: Reports system reviewed and no additional complaints, except as documented Eyes Eyes: Reports system reviewed and no additional complaints, except as documented Cardiovascular Cardiovascular: Reports system reviewed and no additional complaints, except as documented Respiratory Respiratory: Reports system reviewed and no additional complaints, except as documented Gastrointestinal Gastrointestinal: Reports system reviewed and no additional complaints, except as documented Musculoskeletal Musculoskeletal: Reports system reviewed and no additional complaints, except as documented Integumentary/Breasts Skin/Breast: Reports system reviewed and no additional complaints, except as documented Neurologic Neurologic: Reports system reviewed and no additional complaints, except as documented Hematologic/Lymphatic On Anticoagulants: No Patient History Social History household members: family Smoking Status: Former smoker alcohol intake: never Smoking Status: Former smoker Substance Use Type: does not use Exam Initial Vital Signs Initial Vital Signs: Vital Signs Temperature 97.8 F 11/07/23 19:40 Pulse Rate 69 11/07/23 19:40 Respiratory Rate 17 11/07/23 19:40 Blood Pressure 165/70 H 11/07/23 19:40 Pulse Oximetry 99 11/07/23 19:40 Oxygen Delivery Method Room Air 11/07/23 19:40 Const General: cooperative, comfortable and No ill appearing HENMI Head: normal to inspection and laceration (Above left eye) Nose: external nose normal Mouth: oral mucosae normal Teeth and gingiva: dentition normal Eyes Pupils: PERRL EOM: EOM intact bilaterally Resp Effort & Inspection: normal respiratory effort Cardio Rate: regular rate Skin Other: 2 cm laceration above left eye Neuro General: patient alert and patient awake Extrem General: normal to inspection and capillary refill normal Other: No upper extremity tenderness. No lower extremity tenderness. Ambulatory. Procedures Laceration Repair Laceration 1: Site: face Side (If applicable): left Size (cm): 2 Description: linear Depth: simple, single layer Local Anesthetic: lidocaine 1% Amount of anesthesia used (mL): 3 Pre-repair: wound explored and deep structures intact Skin layer closed with: nylon Skin layer suture size: 4-0 Number of sutures: 5 Technique: simple, interrupted Course Orders Ordered: ED Orders 11/07/23 20:17 CT cervical spine wo con Stat CT head/brain wo con Stat Discontinued Medications Bacitracin (Bacitracin Oint 0.9 Gm Pckt) 1 applic TOP NOW ONE Stop: 11/07/23 21:20 Last Admin: 11/07/23 21:33 Dose: Not Given Documented By: KF Vital Signs Vital signs: Vital Signs - 8 hr 11/07/23 19:40 11/07/23 21:34 Temperature 97.8 F Pulse Rate 69 Respiratory Rate 17 Blood Pressure 165/70 H 150/87 H Pulse Oximetry 99 Oxygen Delivery Method Room Air MDM - Fall Imaging Data CT - cervical spine: Radiologist's Impression: PROCEDURE: CT CERVICAL SPINE WO CON INDICATIONS: fall with neck pain TECHNIQUE: Noncontrast 3 mm thick sections acquired from the skull base to the T4 level. Sagittal and coronal reformats were then constructed. For radiation dose reduction, the following was used: automated exposure control, adjustment of mA and/or kV according to patient size. COMPARISON: None. FINDINGS: Image quality: Excellent. Bones: No fractures or dislocations. Visualized superior ribs are intact. Mild to moderate, multilevel degenerative disc disease and facet arthrosis. Soft tissues: Prevertebral soft tissues are normal in thickness. No p aravertebral hematomas. No apical pneumothoraces. IMPRESSION: No displaced fracture or traumatic subluxation. CT scan - head: Radiologist's Impression: PROCEDURE: CT HEAD/BRAIN WO CON INDICATIONS: fall with L sided facial lac TECHNIQUE: Noncontrast 4.5 mm thick angled axial sections acquired from the foramen magnum to the vertex, with coronal and sagittal reformats. For radiation dose reduction, the following was used: automated exposure control, adjustment of mA and/or kV according to patient size. COMPARISON: None. FINDINGS: Image quality: Diagnostic. CSF spaces: Basal cisterns are patent. No extra-axial fluid collections. Ventricles are normal in size and shape. Brain: No midline shift. No intracranial masses or hemorrhage. Rocha-white matter interface is normal. Skull and face: Calvarium and visualized facial bones are intact, without suspicious lesions. Sinuses: Visualized sinuses and mastoids are clear. IMPRESSION: No acute intracranial pathology. MDM Narrative Medical decision making narrative: After the initial evaluation patient then stated that she was having some blurry vision in the left eye him as also having headache. Head CT and cervical spine CT are unremarkable. Laceration above left eye was closed as described above. This does appear to be a mechanical fall. Low suspicion for syncope or seizure. Will discharge patient home with care instructions and return precautions. Patient and family at bedside expressed understanding and agreement with plan. Discharge Plan Departure Patient Disposition: Home Clinical Impression: Forehead laceration Instructions: DI for Laceration Repair -- Simple Activity Restrictions/Additional Instructions: You can sleep like normal. You can put topical antibiotic ointment over the cut. The stitches will need to be removed in 7-10 days. This can be done by either the primary doctor or the walk-in clinic. I also recommend putting ice over the area. Return to the emergency department for new or worsening symptoms. Prescriptions: No Action oxybutynin chloride 5 mg tablet extended release 24hr 5 mg PO QAM propranolol 60 mg capsule,extended release 24 hr 60 mg PO QAM fluoxetine 20 mg Tablet 20 mg PO DAILY aspirin 81 mg Capsule 81 mg PO DAILY Referrals: Blanca Weaver PA-C [Primary Care Provider] - Stand Alone Forms: Patient Portal/API
--- NOTE | 2023-11-07 20:17 | DI.CT.S_ITS ---
PROCEDURE: CT HEAD/BRAIN WO CON INDICATIONS: fall with L sided facial lac TECHNIQUE: Noncontrast 4.5 mm thick angled axial sections acquired from the foramen magnum to the vertex, with coronal and sagittal reformats. For radiation dose reduction, the following was used: automated exposure control, adjustment of mA and/or kV according to patient size. COMPARISON: None. FINDINGS: Image quality: Diagnostic. CSF spaces: Basal cisterns are patent. No extra-axial fluid collections. Ventricles are normal in size and shape. Brain: No midline shift. No intracranial masses or hemorrhage. Rocha-white matter interface is normal. Skull and face: Calvarium and visualized facial bones are intact, without suspicious lesions. Sinuses: Visualized sinuses and mastoids are clear. IMPRESSION: No acute intracranial pathology. Dictated by: Rolo Bright M.D. on 11/07/2023 at 20:49 Approved by: Rolo Bright M.D. on 11/07/2023 at 20:50
--- NOTE | 2023-11-07 20:17 | DI.CT.S_ITS ---
PROCEDURE: CT CERVICAL SPINE WO CON INDICATIONS: fall with neck pain TECHNIQUE: Noncontrast 3 mm thick sections acquired from the skull base to the T4 level. Sagittal and coronal reformats were then constructed. For radiation dose reduction, the following was used: automated exposure control, adjustment of mA and/or kV according to patient size. COMPARISON: None. FINDINGS: Image quality: Excellent. Bones: No fractures or dislocations. Visualized superior ribs are intact. Mild to moderate, multilevel degenerative disc disease and facet arthrosis. Soft tissues: Prevertebral soft tissues are normal in thickness. No paravertebral hematomas. No apical pneumothoraces. IMPRESSION: No displaced fracture or traumatic subluxation. Dictated by: Rolo Bright M.D. on 11/07/2023 at 20:50 Approved by: Rolo Bright M.D. on 11/07/2023 at 20:52
[2023-11-07 21:34] VITALS: BP 150/87
== END 2023-11-07 21:35 | disposition home or self-care (01) ==
PROVIDERS: Emergency Provider Emergency Medicine; PCP Physician Assistant
DX: S01.81XA Laceration without foreign body of other part of head, initial encounter (principal); W18.30XA Fall on same level, unspecified, initial encounter
CPT/HCPCS: 12011; 70450; 72125; 99282; 99283

== ENCOUNTER 2024-01-18 11:49 | Emergency (ER) | payer MEDICARE, MEDICAID, SELFPAY ==
[2024-01-18 12:04] VITALS: BP 178/76; PULSE 54; RESP 16; TEMP 36.6; O2SAT 100; BMI 27.0
--- NOTE | 2024-01-18 12:10 | DI.RAD.S_ITS ---
PROCEDURE: XR WRIST LT MIN 3V INDICATIONS: fall left wrist pain TECHNIQUE: 4 views of the wrist were acquired. COMPARISON: None. FINDINGS: Bones: Lucency in the midaspect of the scaphoid may represent nondisplaced fracture.. No suspicious bony lesions. Soft tissues: No suspicious soft tissue calcifications. IMPRESSION: Possible nondisplaced scaphoid waist fracture. Please correlate for point tenderness. Dictated by: Sarah Rice MD, PhD on 01/18/2024 at 12:44 Approved by: Sarah Rice MD, PhD on 01/18/2024 at 12:45
--- NOTE | 2024-01-18 12:52 | DI.CT.S_ITS ---
PROCEDURE: CT CERVICAL SPINE WO CON INDICATIONS: Fall hit head TECHNIQUE: Noncontrast 3 mm thick sections acquired from the skull base to the T4 level. Sagittal and coronal reformats were then constructed. For radiation dose reduction, the following was used: automated exposure control, adjustment of mA and/or kV according to patient size. COMPARISON: [facility], CT, CT CERVICAL SPINE WO CON, 11/07/2023, 20:24. FINDINGS: Image quality: Diagnostic Bones: Vertebral body heights are well maintained. Straightening of the normal lordosis. No traumatic subluxation or acute vertebral body height loss. Trace persistent anterolisthesis of C2 on C3 and C3 on C4. Soft tissues: No pathologic prevertebral soft tissue swelling. No apical pneumothorax. Prominent cervical lymph nodes are seen, nonenlarged by size criteria, indeterminate. IMPRESSION: No displaced fracture or traumatic subluxation. If there is high concern for further derangement, consider MRI evaluation. Dictated by: Pavel Byrnes M.D. on 01/18/2024 at 13:42 Approved by: Pavel Byrnes M.D. on 01/18/2024 at 13:44
--- NOTE | 2024-01-18 12:52 | DI.CT.S_ITS ---
PROCEDURE: CT HEAD/BRAIN WO CON INDICATIONS: Fall hit head TECHNIQUE: Noncontrast 4.5 mm thick angled axial sections acquired from the foramen magnum to the vertex, with coronal and sagittal reformats. For radiation dose reduction, the following was used: automated exposure control, adjustment of mA and/or kV according to patient size. COMPARISON: [facility], CT, CT HEAD/BRAIN WO CON, 11/07/2023, 20:24. FINDINGS: Image quality: Diagnostic CSF spaces: Basal cisterns are patent. Lateral ventricles are symmetric. Volume: Mild volume loss Brain: No intracranial hemorrhage. Rocha-white differentiation is grossly maintained. Craniofacial structures: No displaced fracture. Sinuses are clear. Orbits are intact. IMPRESSION: No acute intracranial abnormality. Dictated by: Pavel Byrnes M.D. on 01/18/2024 at 13:40 Approved by: Pavel Byrnes M.D. on 01/18/2024 at 13:42
[2024-01-18 16:52] VITALS: BP 181/84; PULSE 56; RESP 18; O2SAT 100
--- NOTE | 2024-01-18 19:11 | PC.NURSE ---
Went to call patient in [facility]. pt left at 5:27pm. pt has a fracture. I called the sister that bought the patient in. Dr. Manzanares reviewed the xray and patient has a fracture. Sister reports that the patient is disabled and it will take her an hour to get back to the hospital or they may not come. I encouraged her to come in [facility]. dr. manzanares aware.
--- NOTE | 2024-01-18 19:37 | ED.FALL ---
HPI - Fall General Chief Complaint: Fall Stated Complaint: fell/head inj Time Seen by Provider: 01/18/24 19:30 Source: patient and family Mode of arrival: Ambulatory History of Present Illness HPI Narrative: Patient is a 63-year-old female. Not on anticoagulation. Is here for evaluation of injuries that she sustained when she tripped and fell. She did hit her head. No loss of consciousness. She landed on her knees. She also landed on her wrist. She was complaining of pain at the bottom of the left thumb and around the wrist. She also sustained a small cut above the left eye that was covered with a bandage. No other injuries from the event. Related Data Home Medications Medication Instructions Recorded Confirmed oxybutynin chloride 5 mg 5 mg PO QAM 04/01/20 11/15/23 tablet,extended release 24 hr propranolol 60 mg capsule,24 60 mg PO QAM 04/01/20 11/15/23 hr,extended release aspirin 81 mg capsule 81 mg PO DAILY 11/16/22 11/15/23 fluoxetine 20 mg tablet 20 mg PO DAILY 11/16/22 11/15/23 Allergies Allergy/AdvReac Type Severity Reaction Status Date / Time Penicillins [PENICILLINS] Allergy Mild nausea Verified 01/18/24 12:09 Review of Systems Review of Systems ROS Unobtainable: All systems reviewed & are unremarkable except as noted in HPI and below Patient History Social History household members: family Smoking Status: Former smoker alcohol intake: never Smoking Status: Former smoker Substance Use Type: does not use Exam Initial Vital Signs Initial Vital Signs: Vital Signs Temperature 97.8 F 01/18/24 12:04 Pulse Rate 54 L 01/18/24 12:04 Respiratory Rate 16 01/18/24 12:04 Blood Pressure 178/76 H 01/18/24 12:04 Pulse Oximetry 100 01/18/24 12:04 Oxygen Delivery Method Room Air 01/18/24 12:04 Const General: cooperative and comfortable HENMT Head: laceration (1 cm laceration above left eye) Nose: external nose normal Face and sinus: normal facial exam Resp Effort & Inspection: normal respiratory effort Cardio Rate: regular rate Back/Spine/Pelvis Cervical Spine: No cervical spinal tenderness Skin Other: 1 cm laceration above left eye. No foreign body noted. Neuro General: patient alert and patient awake Extrem Other: No specific discomfort over the snuffbox area but the patient does have discomfort at the base of the left thumb. Left elbow and left shoulder unremarkable. Procedures Laceration Repair Laceration 1: Site: face Side (If applicable): left Size (cm): 1 Description: linear Depth: simple, single layer Skin layer closed with: other (Chromic) Skin layer suture size: 4-0 Number of sutures: 1 Technique: simple, interrupted Orthopedic Splinting/Casting Injury #1: Side: left Upper Extremity Injury Location: wrist Upper Extremity Immobilizer: thumb spica Post splinting neuro exam: no change Post splinting vascular exam: no change Placed by: Nursing Course Orders Ordered: Discontinued Medications Bacitracin (Bacitracin Oint 0.9 Gm Pckt) 1 applic TOP NOW ONE Stop: 01/18/24 19:44 Last Admin: 01/18/24 20:04 Dose: 1 applic Documented By: LIANNA Vital Signs Vital signs: Vital Signs - 8 hr 01/18/24 20:21 Pulse Rate 54 L Respiratory Rate 16 Blood Pressure 128/63 Pulse Oximetry 99 Oxygen Delivery Method Room Air MDM - Fall Imaging Data Extremity x-ray #1: Radiologist's Impression: PROCEDURE: XR WRIST LT MIN 3V INDICATIONS: fall left wrist pain TECHNIQUE: 4 views of the wrist were acquired. COMPARISON: None. FINDINGS: Bones: Lucency in the midaspect of the scaphoid may represent nondisplaced fracture.. No suspicious bony lesions. Soft tissues: No suspicious soft tissue calcifications. IMPRESSION: Possible nondisplaced scaphoid waist fracture. Please correlate for point tenderness. CT - cervical spine: Radiologist's Impression: PROCEDURE: CT CERVICAL SPINE WO CON INDICATIONS: Fall hit head TECHNIQUE: Noncontrast 3 mm thick sections acquired from the skull base to the T4 level. Sagittal and coronal reformats were then constructed. For radiation dose reduction, the following was used: automated exposure control, adjustment of mA and/or kV according to patient size. COMPARISON: [facility], CT, CT CERVICAL SPINE WO CON, 11/07/2023, 20:24. FINDINGS: Image quality: Diagnostic Bones: Vertebral body heights are well maintained. Straightening of the normal lordosis. No traumatic subluxation or acute vertebral body height loss. Trace persistent anterolisthesis of C2 on C3 and C3 on C4. Soft tissues: No pathologic prevertebral soft tissue swelling. No apical pneumothorax. Prominent cervical lymph nodes are seen, nonenlarged by size criteria, indeterminate. IMPRESSION: No displaced fracture or traumatic subluxation. If there is high concern for further derangement, consider MRI evaluation. CT scan - head: Radiologist's Impression: PROCEDURE: CT HEAD/BRAIN WO CON INDICATIONS: Fall hit head TECHNIQUE: Noncontrast 4.5 mm thick angled axial sections acquired from the foramen magnum to the vertex, with coronal and sagittal reformats. For radiation dose reduction, the following was used: automated exposure control, adjustment of mA and/or kV according to patient size. COMPARISON: [facility], CT, CT HEAD/BRAIN WO CON, 11/07/2023, 20:24. FINDINGS: Image quality: Diagnostic CSF spaces: Basal cisterns are patent. Lateral ventricles are symmetric. Volume: Mild volume loss Brain: No intracranial hemorrhage. Rocha-white differentiation is grossly maintained. Craniofacial structures: No displaced fracture. Sinuses are clear. Orbits are intact. IMPRESSION: No acute intracranial abnormality. [facility] Narrative Medical decision making narrative: Forehead laceration was closed as described above. Patient was given care instructions and return precautions for this. She was placed in a thumb spica splint secondary to having discomfort in this area in the findings of the x-ray. Will have the patient follow up with Orthopedic surgery. No indication for admission to the hospital this does appear to be a mechanical fall. Head CT and cervical spine CT are negative. No other injuries reported from the patient nor found on the exam. She was given return precautions. She expressed understanding and agreement with the plan. Discharge Plan Departure Patient Disposition: Home Clinical Impression: Forehead laceration, Fracture of scaphoid Instructions: Wrist Fracture, How to Take Care of Your Splint Activity Restrictions/Additional Instructions: The splint that was placed today needs to be treated like a cast. You need to keep it on and keep it clean keep it dry. Contact the Orthopedic Department at the number provided below for a follow-up. Return to the emergency department for new symptoms. Prescriptions: No Action oxybutynin chloride 5 mg tablet extended release 24hr 5 mg PO QAM propranolol 60 mg capsule,extended release 24 hr 60 mg PO QAM fluoxetine 20 mg Tablet 20 mg PO DAILY aspirin 81 mg Capsule 81 mg PO DAILY Referrals: Gisel Jimenez MD [Physician] - Blanca Weaver PA-C [Primary Care Provider] - Stand Alone Forms: Patient Portal/API
[2024-01-18] MEDS: BACITRACIN OINT 0.9 GM PCKT 1 APPLIC TOP (20:04)
[2024-01-18 20:21] VITALS: BP 128/63; PULSE 54; RESP 16; O2SAT 99
== END 2024-01-18 20:26 | disposition home or self-care (01) ==
PROVIDERS: Emergency Provider Emergency Medicine; PCP Physician Assistant
DX: S01.81XA Laceration without foreign body of other part of head, initial encounter (principal); S62.002A Unspecified fracture of navicular [scaphoid] bone of left wrist, initial encounter for closed fracture; W01.0XXA Fall on same level from slipping, tripping and stumbling without subsequent striking against object, initial encounter
CPT/HCPCS: 12011; 29125; 70450; 72125; 73110; 99284

== ENCOUNTER → 2024-01-21 12:51 | Outpatient (CLI) | payer MEDICARE, MEDICAID, SELFPAY ==
--- NOTE | 2024-01-21 12:53 | DI.CT.S_ITS ---
PROCEDURE: CT UE LT WO CON INDICATIONS: LEFT WRIST PAIN TECHNIQUE: Noncontrast 1 mm axial sections acquired through the carpal bones, with coronal and sagittal reformats. COMPARISON: [facility], CR, XR WRIST LT MIN 3V, 01/18/2024, 12:26. FINDINGS: Image quality: Excellent. Bones: Minimally comminuted fracture of the scaphoid waist, with predominant transverse complete, nondisplaced. Moderate degenerative change of 1st carpometacarpal joint, with multiple associated heterotopic ossification. Soft tissues: Mild subcutaneous edema of the volar wrist. The flexor tendon is unremarkable. Mild ulnar subluxation of the extensor carpi ulnaris within the carpal groove. Mild subcutaneous edema of the dorsal wrist is well. IMPRESSION: Predominantly transverse, nondisplaced fracture of the scaphoid waist. Mild subcutaneous edema of the volar and dorsal wrist. Dictated by: Ronit Cabral M.D. on 01/21/2024 at 14:55 Approved by: Ronit Cabral M.D. on 01/21/2024 at 15:00
== END ==
PROVIDERS: PCP Physician Assistant; Referring Provider Orthopaedic Surgery Orthopaedic Surgery of the Spine; Visit Provider Orthopaedic Surgery Orthopaedic Surgery of the Spine
DX: S62.025A Nondisplaced fracture of middle third of navicular [scaphoid] bone of left wrist, initial encounter for closed fracture (principal); M25.532 Pain in left wrist
CPT/HCPCS: 73200

== ENCOUNTER → 2025-01-16 16:56 | Outpatient (CLI) | payer MEDICARE, MEDICAID, SELFPAY ==
--- NOTE | 2025-01-16 16:59 | DI.MG.S_ITS ---
MM screening mammo BI: 01/16/2025. BI-RADS: 1 CLINICAL: 64-year old female for bilateral screening mammogram. Tyrer-Cuzick lifetime risk of 27.2%. Current reported family history of breast cancer: mother and sister. PRIOR EXAMS 09/12/2021, 09/26/2019, 06/20/2015. MAMMOGRAPHY TECHNIQUE: 2D and 3D (tomosynthesis) digital mammographic views obtained, with additional images as needed for full coverage. Current study was also evaluated with a Computer Aided Detection (CAD) system. DENSITY D. The breasts are extremely dense, which lowers the sensitivity of mammography. MAMMOGRAPHY FINDINGS Bilateral: No suspicious mass, asymmetry, microcalcification, or other abnormality seen. IMPRESSION: * No evidence of malignancy. RECOMMENDATIONS Bilateral * According to the Tyrer-Cuzick Risk Assessment Model, based on the information provided your patient has a greater than 20% lifetime risk for developing breast cancer. Consider supplemental screening with breast MRI and participation in a high risk screening program. * Annual screening mammography. OVERALL ASSESSMENT CATEGORY BI-RADS-1: Negative. The [employer] recommends annual screening mammography beginning at age 40 for women with average risk of breast cancer. ELECTRONICALLY SIGNED: Holland Johnson M.D. on 01/19/2025 at 11:43:59 PM PT Interpreting Station ID: [id number]
== END ==
PROVIDERS: PCP Physician Assistant; Referring Provider Physician Assistant; Visit Provider Physician Assistant
DX: Z12.31 Encounter for screening mammogram for malignant neoplasm of breast (principal); Z80.3 Family history of malignant neoplasm of breast; R92.343 Mammographic extreme density, bilateral breasts
CPT/HCPCS: 77063; 77067